=== PATIENT | female | born 1945 | race Caucasian/White ===

== ENCOUNTER → 2019-09-09 11:05 | Outpatient (BNVA) | payer MEDICARE, OTHER, SELFPAY | PROVIDERS: Family Provider Family Medicine; PCP Family Medicine; Visit Provider Family Medicine | DX: R11.0 Nausea (principal); W57.XXXA Bitten or stung by nonvenomous insect and other nonvenomous arthropods, initial encounter | CPT/HCPCS: 86618; 86666; 86757 ==

== ENCOUNTER 2019-11-03 10:12 | Outpatient (CLI) | payer MEDICARE, OTHER, SELFPAY ==
--- NOTE | 2019-11-03 12:51 | ONC FU_ITS ---
Dr. Khoury follow up note Patient: Lisa Das Unit #: [id number]: 1945 Dicatated By: Barry Khoury M.D.Date of Visit:November 03, 2019 Onc Med Follow-up/Prog Note History of Present Illness: Mrs. Lisa Das, is a 74-year-old female with history of left breast mass underwent mammogram on 05/25/2018 which showed an angular mass which is hypoechoic posterior to the left nipple measures 2.6 x 1.6 cm and there is an additional mass at 4:00 position might about 1.5 x 0.8 cm patient underwent left breast biopsy on 06/14/2018 which showed infiltrating ductal carcinoma ER/ND positive HER-2/ama negative Underwent left total mastectomy and left axillary sentinel lymph node biopsy on 07/13/2018 final pathology report showed 2.5 x 1.3 cm infiltrating ductal carcinoma with clear surgical margins, positive lymphovascular space invasion, T2 Left axillary sentinel lymph node biopsy showed benign adipose connective tissue as no lymph node was identified ,Nx Ki-67 23% unfavorable risk, estrogen receptor 76%, progesterone receptor 73% HER-2/ama negative Oncotype DX score checked done 08/03/2018 showed recurrence score 16, e.g. low score e.g. no apparent benefit from chemotherapy.So started on adjuvant Arimidex 1 mg by mouth daily for 5 years on 07/27/2018, Along with calcium/vitamin D supplements Came for follow-up, denies any specific complaints, no fever or chills, no nausea or vomiting, no diarrhea constipation occasionally hot flashes otherwise tolerating Arimidex well along with vitamin D and calcium supplement Medications: Anastrozole 1 Tablet (of 1 mg) Oral daily, Levothyroxine Sodium 1 Tablet (of 75 mcg) Oral daily Allergies: Penicillins Review of Systems: Constitutional - Appetite is good and weight is stable. No fever, chills, or night sweats. Energy level is good. Positive for hot flashes, ENMT - No sinus congestion/drainage. No mouth sores. No sore throat or difficulty swallowing, Hematologic/Lymphatic - No abnormal bruising or bleeding, Respiratory - No shortness of breath. No cough. No pleuritic pain or hemoptysis, Cardiovascular - No angina pain. No palpitations, Gastrointestinal - No nausea or vomiting. No heartburn or acid reflux. No diarrhea or constipation. No blood in the stool or black stools, Genitourinary (F) - No dysuria or hematuria. No urinary frequency. No urgency or incontinence, Musculoskeletal - No joint or bone pain, Neurologic - No headache or dizziness. No numbness/paresthesias or other focal neurologic symptoms, Psychiatric - No anxiety or depression. No insomnia. Vital Signs: Performed on November 03, 2019 10:37 Height - 64.00 in Weight - 228.4 lbs (LOW) BSA - 2.07 sq.m BMI - 39.21 (HIGH) Temperature - 97.8 F (LOW) Pulse - 78 /min Respiration - 20 /min BP - 140/81 mm(hg) O2 Sat - 96 % Pain - 0 Performance Status: 0 - Fully active, able to carry on all predisease activities without restrictions. (ECOG) Physical Examination: Respiratory - Lungs are clear, Cardiovascular - Regular rate and rhythm of heart, Extremities - no visible edema or rash. Lab/Imaging: Test performed on May 11, 2019 12:36 TSH 2.19 uU/mL Cholesterol, Total 214 mg/dL Glucose 107 mg/dL BUN 16 mg/dL HDL Cholesterol 51 mg/dL Creatinine 0.4 mg/dL LDL Cholesterol 137 mg/dL Cr Clearance (Est) 216.3000 mL/min Triglycerides 129 mg/dL Sodium 134 mmol/L Potassium 4.2 mmol/L Chloride 99 mmol/L CO2 21 mmol/L Calcium 10.2 mg/dL Protein, Total 7.4 g/dL Albumin 5.2 g/dL Globulin 2.2 g/dL Bilirubin, Total 0.4 mg/dL Alkaline Phosphatase 80 IU/L AST (SGOT) 22 IU/L ALT (SGPT) 28 IU/L WBC 7.8 10^9/L RBC 4.45 10^12/L HGB 13.4 g/dL HCT 40.1 % MCV 90.1 fl MCH 30.1 pg MCHC 33.4 g/dL RDW 12.6 % Platelet Count 271 10^9/L MPV 12.3 fL Neutrophils (Gran) 4.6 10^9/L Lymphocytes 2.3 10^9/L Monocytes 0.6 10^9/L Eosinophils 0.3 10^9/L Basophils 0.1 10^9/L Manual Lymphocytes 29.1 % Manual Monocytes 7.8 % Manual Eosinophils 3.2 % Manual Basophils 1.3 % Impression: Infiltrating ductal carcinoma status post left simple mastectomy with axillary lymph node biopsy done on 07/13/2018 Final pathology report showed 2.5 x 1.3 cm invasive mass with clear surgical margins T2 Lymphovascular space involvement present. Left axillary [place] lymph node biopsy was done but No lymph node were identified in the specimen, rather benign adipose connective tissue, Nx ER/ND positive, HER-2/ama negative Infiltrating ductal carcinoma per left breast biopsy done on 06/14/2018 grade 2 estrogen 76% positive progesterone 73% positive HER-2/ama negative Ki-67 23% Mammogram/ultrasound left breast measures mass 3 x 2.5 cm occupying the lesion between 12 to 6:00 with nipple eversion cT2,Nx,Mx Immunoperoxidase stains positive for E-cadherin and P120 catenin Oncotype DX score checked on 08/03/2018, was 16 e.g. low score, no apparent benefit from adjuvant chemotherapy, started on Arimidex 1 mg by mouth daily for 5 years on 07/27/2018, along with calcium and vitamin D supplements. Plan: Discussed with patient regarding her concerns and questions, clinically patient has no signs symptom suggestive of recurrence of disease. Tolerating adjuvant therapy with Arimidex well. Continue with same and she will return to clinic in 6 months with CBC CMP and follow-up mammogram Signed By: Barry Khoury M.D. <<Signature on File>>
== END 2019-11-03 10:13 | disposition home or self-care (01) ==
LOC: ONCMED 10:19
PROVIDERS: PCP Family Medicine; Visit Provider Internal Medicine Hematology & Oncology
DX: C50.812 Malignant neoplasm of overlapping sites of left female breast (principal); Z17.0 Estrogen receptor positive status [ER+]; Z79.811 Long term (current) use of aromatase inhibitors; Z90.12 Acquired absence of left breast and nipple
CPT/HCPCS: 99214

== ENCOUNTER → 2020-02-28 08:19 | Outpatient (BNVA) | payer MEDICARE, OTHER, SELFPAY | PROVIDERS: PCP Family Medicine; Visit Provider Family Medicine | DX: Z13.6 Encounter for screening for cardiovascular disorders (principal); E03.9 Hypothyroidism, unspecified | CPT/HCPCS: 80053; 80061; 84443; 85025 ==

== ENCOUNTER 2020-03-16 11:13 | Outpatient (CLI) | payer MEDICARE, OTHER, SELFPAY ==
--- NOTE | 2020-03-16 11:20 | XR_ITS ---
WS: [id number] Right knee, 3 views, 03/16/2020 Clinical Data: right knee pain Comparison: None. Findings: There is lateral joint compartment narrowing with osteophyte formation at the lateral femoral condyle and lateral tibial plateau. The medial joint compartment is normal. There is irregularity of the pos terior patella. No fractures or dislocations are seen. The soft tissues are normal. There is no bone destruction or e rosion. XR/XR knee RT 3V* [id number] Impression: Osteoarthritis of the lateral joint compartment and the posterior patella of th e right knee.
== END 2020-03-16 11:14 | disposition home or self-care (01) ==
LOC: RAD 11:18
PROVIDERS: PCP Family Medicine; Visit Provider Family Medicine
DX: M17.11 Unilateral primary osteoarthritis, right knee (principal)
CPT/HCPCS: 73562

== ENCOUNTER → 2020-04-16 15:22 | Outpatient (BNVA) | payer MEDICARE, OTHER, SELFPAY | PROVIDERS: PCP Family Medicine; Referring Provider Family Medicine; Visit Provider Specialist | DX: M25.561 Pain in right knee (principal); M17.11 Unilateral primary osteoarthritis, right knee | CPT/HCPCS: 73560; 73565 ==

== ENCOUNTER 2020-04-19 14:27 | Outpatient (RCR) | payer MEDICARE, OTHER, SELFPAY | END 2020-05-07 23:59 | disposition home or self-care (01) | LOC: SPT 14:27 | PROVIDERS: PCP Family Medicine; Referring Provider Specialist; Visit Provider Specialist | DX: M17.0 Bilateral primary osteoarthritis of knee (principal) | CPT/HCPCS: 97110; 97161 ==

== ENCOUNTER 2020-05-01 10:20 | Outpatient (CLI) | payer MEDICARE, OTHER, SELFPAY ==
--- NOTE | 2020-05-01 10:28 | MM_ITS ---
WS: [id number] RIGHT DIGITAL MAMMOGRAPHY WITH CAD CLINICAL INFORMATION: HX OF BREAST CA HISTORY OF LEFT MASTECTOMY. COMPARISON: TECHNIQUE: 4 views of the right breast were obtained. FINDINGS: Fatty-replaced right breast. A few punctate calcifications right breast. Lucent centered calcificatio ns. No suspicious focal mass, asymmetry, calcifications, or architectural distortion. No evidence of lori gnancy. MM/[place] [id number] IMPRESSION: BI-RADS: 2-Benign FOLLOW UP: 1 Year Follow-up Recommend return to annual diagnostic mammography.
== END 2020-05-01 10:21 | disposition home or self-care (01) ==
PROVIDERS: PCP Family Medicine; Visit Provider Internal Medicine Hematology & Oncology
DX: Z85.3 Personal history of malignant neoplasm of breast (principal); Z90.11 Acquired absence of right breast and nipple
CPT/HCPCS: 77065; 80053; 85025

== ENCOUNTER 2020-05-08 06:00 | Outpatient (RCR) | payer MEDICARE, OTHER, SELFPAY | END 2020-06-07 23:59 | disposition home or self-care (01) | LOC: SPT 06:00 | PROVIDERS: PCP Family Medicine; Referring Provider Specialist; Visit Provider Specialist | DX: M17.0 Bilateral primary osteoarthritis of knee (principal) | CPT/HCPCS: 97110 ==

== ENCOUNTER 2020-05-14 14:31 | Outpatient (CLI) | payer MEDICARE, OTHER, SELFPAY ==
--- NOTE | 2020-05-14 16:48 | ONC FU_ITS ---
Dr. Khoury follow up note Patient: Lisa Das Unit #: [id number]: [id number] Dicatated By: Barry Khoury M.D.Date of Visit:May 14, 2020 Onc Med Follow-up/Prog Note History of Present Illness: Mrs. Lisa Das, is a 75-year-old female with history of left breast mass underwent mammogram on 05/25/2018 which showed an angular mass which is hypoechoic posterior to the left nipple measures 2.6 x 1.6 cm and there is an additional mass at 4:00 position might about 1.5 x 0.8 cm patient underwent left breast biopsy on 06/14/2018 which showed infiltrating ductal carcinoma ER/MS positive HER-2/ama negative Underwent left total mastectomy and left axillary sentinel lymph node biopsy on 07/13/2018 final pathology report showed 2.5 x 1.3 cm infiltrating ductal carcinoma with clear surgical margins, positive lymphovascular space invasion, T2 Left axillary sentinel lymph node biopsy showed benign adipose connective tissue as no lymph node was identified ,Nx Ki-67 23% unfavorable risk, estrogen receptor 76%, progesterone receptor 73% HER-2/ama negative Oncotype DX score checked done 08/03/2018 showed recurrence score 16, e.g. low score e.g. no apparent benefit from chemotherapy.So started on adjuvant Arimidex 1 mg by mouth daily for 5 years on 07/27/2018, Along with calcium/vitamin D supplements Follow-up mammogram done on May 01, 2020 shows BI-RADS 2 benign Came for follow-up, denies any specific complaints except right knee pain and knee replacement is under consideration, as per patient she was told to lose weight, so far she has lost 10 pounds as she is not eating any sugars and with that her hot flashes related to Arimidex have also resolved. Overall patient is feeling well and tolerating Arimidex/vitamin D/calcium well Medications: Anastrozole 1 Tablet (of 1 mg) Oral daily, Levothyroxine Sodium 1 Tablet (of 75 mcg) Oral daily Allergies: Penicillins Review of Systems: Constitutional - Appetite is good and weight is stable. No fever, chills, or night sweats. Energy level is good. Positive for hot flashes, ENMT - No sinus congestion/drainage. No mouth sores. No sore throat or difficulty swallowing, Hematologic/Lymphatic - No abnormal bruising or bleeding, Respiratory - No shortness of breath. No cough. No pleuritic pain or hemoptysis, Cardiovascular - No angina pain. No palpitations, Gastrointestinal - No nausea or vomiting. No heartburn or acid reflux. No diarrhea or constipation. No blood in the stool or black stools, Genitourinary (F) - No dysuria or hematuria. No urinary frequency. No urgency or incontinence, Musculoskeletal - Positive for knee pain, Neurologic - No headache or dizziness. No numbness/paresthesias or other focal neurologic symptoms, Psychiatric - No anxiety or depression. No insomnia. Vital Signs: Performed on May 14, 2020 16:15 Height - 64.00 in Weight - 234.6 lbs (HIGH) BSA - 2.09 sq.m BMI - 40.27 (HIGH) Temperature - 98.4 F Pulse - 78 /min Respiration - 16 /min BP - 156/68 mm(hg) (HIGH) O2 Sat - 97 % Pain - 0 Performance Status: 0 - Fully active, able to carry on all predisease activities without restrictions. (ECOG) Physical Examination: Respiratory - Lungs are clear to auscultation, Cardiovascular - Regular rate and rhythm of heart, Gastrointestinal - Soft, bowel sounds present, Extremities - No visible edema or rash. Lab/Imaging: Test performed on May 01, 2020 11:46 Glucose 99 mg/dL BUN 20 mg/dL Creatinine 0.5 mg/dL Cr Clearance (Est) 163.89 mL/min Sodium 139 mmol/L Potassium 4.3 mmol/L Chloride 102 mmol/L CO2 28 mmol/L Calcium 9.5 mg/dL Protein, Total 7.6 g/dL Albumin 4.3 g/dL Globulin 3.3 g/dL Bilirubin, Total 0.3 mg/dL Alkaline Phosphatase 77 IU/L AST (SGOT) 20 IU/L ALT (SGPT) 27 IU/L WBC 7.8 10^9/L RBC 4.40 10^12/L HGB 13.6 g/dL HCT 42.3 % MCV 96.1 fl MCH 30.9 pg MCHC 32.2 g/dL RDW 12.7 % Platelet Count 300 10^9/L MPV 11.1 fL Neutrophils (Gran) 4.38 10^9/L Lymphocytes 2.4 10^9/L Monocytes 0.6 10^9/L Eosinophils 0.2 10^9/L Basophils 0.1 10^9/L Manual Lymphocytes 30.1 % Manual Monocytes 8.2 % Manual Eosinophils 2.6 % Manual Basophils 1.5 % Impression: Infiltrating ductal carcinoma status post left simple mastectomy with axillary lymph node biopsy done on 07/13/2018 Final pathology report showed 2.5 x 1.3 cm invasive mass with clear surgical margins T2 Lymphovascular space involvement present. Left axillary [place] lymph node biopsy was done but No lymph node were identified in the specimen, rather benign adipose connective tissue, Nx ER/MS positive, HER-2/ama negative Infiltrating ductal carcinoma per left breast biopsy done on 06/14/2018 grade 2 estrogen 76% positive progesterone 73% positive HER-2/ama negative Ki-67 23% Mammogram/ultrasound left breast measures mass 3 x 2.5 cm occupying the lesion between 12 to 6:00 with nipple eversion cT2,Nx,Mx Immunoperoxidase stains positive for E-cadherin and P120 catenin Oncotype DX score checked on 08/03/2018, was 16 e.g. low score, no apparent benefit from adjuvant chemotherapy, started on Arimidex 1 mg by mouth daily for 5 years on 07/27/2018, along with calcium and vitamin D supplements. Plan: Discussed with patient regarding her labs white blood count 7.8 hemoglobin 13.6 crit 42.3 platelets 300,000 CMP within normal limits and follow-up mammogram done on May 01, 2020 shows BI-RADS 2, benign findings Clinically, patient doing well with no new signs symptom suggestive of recurrence of disease, tolerating Arimidex/vitamin D/calcium well. Her hot flashes, as per patient now resolved since she stopped consuming sugar and also have lost about 10 pounds and goal is to lose 10 more before right knee replacement is considered probably in June of July 2020. Patient will return to clinic in 6 months for follow-up in the meantime we will continue daily Arimidex/vitamin D/calcium. Signed By: Barry Khoury M.D. <<Signature on File>>
== END 2020-05-14 14:32 | disposition home or self-care (01) ==
LOC: ONCMED 14:35
PROVIDERS: PCP Family Medicine; Visit Provider Internal Medicine Hematology & Oncology
DX: C50.812 Malignant neoplasm of overlapping sites of left female breast (principal); Z17.0 Estrogen receptor positive status [ER+]; E55.9 Vitamin D deficiency, unspecified; E58 Dietary calcium deficiency; Z79.811 Long term (current) use of aromatase inhibitors
CPT/HCPCS: 99214

== ENCOUNTER → 2020-08-06 | Day surgery (SDC) | payer MEDICARE, OTHER, SELFPAY | PROVIDERS: PCP Family Medicine; Visit Provider Specialist | DX: Z01.818 Encounter for other preprocedural examination (principal) | CPT/HCPCS: 93005 ==

== ENCOUNTER → 2020-08-16 12:46 | Outpatient (BNVA) | payer MEDICARE, OTHER, SELFPAY | PROVIDERS: PCP Family Medicine; Visit Provider Specialist | DX: Z01.812 Encounter for preprocedural laboratory examination (principal); M17.11 Unilateral primary osteoarthritis, right knee | CPT/HCPCS: 87635 ==

== ENCOUNTER 2020-08-21 11:46 | Observation (INO) | payer MEDICARE, OTHER, SELFPAY ==
[2020-08-06 09:52] VITALS: BMI 38.6
--- NOTE | 2020-08-06 10:06 | ECG_ITS ---
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 Measurements Intervals [place] Rate: 55 P: 56 NV: 168 QRS: -8 QRSD: 76 T: 67 QT: 434 QTc: 415 Interpretive Statements SINUS BRADYCARDIA Compared to ECG 07/12/2018 09:49:37 Sinus rhythm no longer present T-wave abnormality no longer present Electronically Signed On 08-06-2020 19:00:39 [employer] by Max Shannon M.D. [id number]
--- NOTE | 2020-08-06 10:21 | ANES.PREANE2 ---
Pre-Anesthetic Assessment Pre-Anesthetic Assessment: Height/Weight: Height 1.63 m Weight 102.058 kg Preop Diagnosis: Knee pain Proposed Procedure: Operation Date: 08/21/20 07:00 Proposed Procedures p right Total Knee Arthroplasty 49938 m17.0(Right) - Ewelina Moon MD Familial anesthetic complications: None Social: Social History: No alcohol and No tobacco Exam: Pre-Anes Outpt Exam: alert, oriented x 3, clear to auscultation bilaterally and regular rate & rhythm Airway: Cervical ROM: WNL MP: 2 Dentition: Caps Metabolic: Metabolic: Morbid obesity and Thyroid Musc/skel: Musc/skel: OA/DJD Comments: shoulder pain (B/L) Anesthetic Plan: ASA status: 2 Anesthesia: Regional (specify below) (adductor ) Other: patient considering doing spinal, will decide morning of surgery Risk of > 500 ml blood loss (7ml/kg in children): Yes, adequate IV access and fluids planned PFSH Anesthesia PFSH: Medical History Breast cancer Hypothyroidism Surgical History H/O: hysterectomy S/P cholecystectomy S/P mastectomy On left Family History Other CAD (coronary artery disease) Cancer Social History Smoking and tobacco status: never smoked Alcohol intake: never Lives independently: No Household members: spouse Marital status: Current gender identity: Female Female Reproductive History: Para: 1 Spontaneous abortions: No Data Anesthesia Cardiac Studies: No Data to Display
--- NOTE | 2020-08-06 14:04 | SUR.PREOP ---
08/06/20 10;00 no orders in computer. No labs drawn. Ekg obtained off of anesthesia protocol.
[2020-08-21] VITALS (19 sets, daily range): BP systolic 103–170; BP diastolic 50–76; PULSE 47–78; RESP 16–20; TEMP 35.6–37.1; O2SAT 93–100
--- NOTE | 2020-08-21 08:19 | P.ANESUD_ITS ---
Pre-Anesthetic Update Pre-Anesthetic Assessment: Date of Surgery/Procedure: 08/21/20 Preop Sherin gnosis: Osteoarthritis right knee Proposed Procedure: Operation Date: 08/21/20 09:25 Proposed Procedures p right Total Knee Arthroplasty 53699 m17.0(Right) - Ewelina Moon MD Any changes to Pre-Anesthetic Assessment?: No Vitals: Temperature 96.0 F L 08/21/20 07:56 Pulse Rate 58 L 08/21/20 07:56 Pulse Rhythm 08/21/20 07:57 Pulse Strength 3+ Normal 08/21/20 07:57 Respiratory Rate 18 08/21/20 07:56 Blood Pressure 167/66 08/21/20 07:56 Blood Pressure Dolores n 99 08/21/20 07:56 Pulse Oximetry 96 08/21/20 07:56 Oxygen Delivery Me thod 08/21/20 07:57 Exam: Pre-Anes Outpt Exam: alert, oriented x 3, clear to auscultation bilaterally and regular rate & rhythm Other Pertinent Information: Other Pertinent Information: SAB/adductor Cardiac Studies: No Data to Display
[2020-08-21] MEDS: sodium chloride 0.9% 1,000 ML 30 ML IV (08:37)
[2020-08-21] MEDS: CELEcoxib 200 mg Capsule 400 MG PO (08:43)
[2020-08-21] MEDS: midazolam 1 mg/mL INJ 2 mL 2 MG IVP (08:54)
[2020-08-21 08:55] LABS: Basophils # 0.1 10^3/uL (0.0-0.1); Basophils % 1.6 %; Eosinophils # 0.2 10^3/uL (0.0-0.8); Eosinophils % 2.8 %; Hemoglobin 14.6 g/dL (11.5-15.3); Lymphocytes # 2.3 10^3/uL (0.8-4.8); Lymphocytes % 28.7 %; Mean Corpuscular HGB Conc 33.2 g/dL (30.0-36.0); Mean Corpuscular Hemoglobin 31.2 pg (28.0-34.0); Mean Platelet Volume 11.1 fL (7.4-10.4); Monocytes # 0.6 10^3/uL (0.2-0.9); Monocytes % 7.5 %; Neutrophils % 59.1 %; Nucleated Red Blood Cells % 0 %; Platelet Count 289 10^3/cmm (130-400); Red Blood Count 4.68 10^6/uL (4.1-5.3); Red Cell Distribution Width 12.7 % (12.1-15.1)
[2020-08-21 09:15] LABS: Alanine Aminotransferase 21 U/L (0-33); Albumin Level 4.4 g/dL (3.5-5.2); Alkaline Phosphatase 73 IU/L (35-105); Aspartate Amino Transferase 17 U/L (0-32); Blood Urea Nitrogen 17 mg/dL (8-23); Calcium 9.7 mg/dL (8.5-10.5); Carbon Dioxide 28 mmol/L (22-29); Chloride 101 mmol/L (98-107); Globulin 3.5 g/dL (1.3-4.6); Glucose 99 mg/dL (65-115); Osmolality Calculated 288 mOsm/kg (285-295); Sodium 138 mmol/L (136-145); Total Bilirubin 0.3 mg/dL (0.15-1.2); Total Protein 7.9 g/dL (6.6-8.7)
[2020-08-21 09:16] LABS: Add Urine Microscopic? YES; Bilirubin Urine Neg (Negative); Blood Urine Neg (Negative); Glucose Urine UA Norm (Normal); Ketones Urine Negative (Negative); Leukocyte Esterase Urine 2+ (Negative); Nitrate Urine Negative (Negative); Protein Urine Neg (Negative); Urine Appearance SL Hazy (CLEAR); Urine Color Yellow (Yellow); Urobilinogen Urine Norm (Negative); pH Urine 5 (5-7)
[2020-08-21 09:17] LABS: RBC Urine RARE /hpf (0-2); WBC Urine 0-4 /hpf (0-5)
[2020-08-21 09:19] LABS: Add Urine Culture? No; Bacteria Urine 1+ /hpf; Mucus Urine TRACE /hpf
--- NOTE | 2020-08-21 09:34 | W.PM.OPSUD ---
Surgery/Procedure H&P Update DATE OF PROCEDURE: August 21, 2020 DATE H&P PERFORMED: 07/30/20 H&P UPDATE INFORMATION: I have reviewed H&P completed within last 30 days, I have examined patient prior to procedure, No changes to prior documentation and H&P is in [facility] EMR on date indicated PREOP DIAGNOSIS: Osteoarthritis right knee PLANNED PROCEDURE: Operation Date: 08/21/20 09:25 Proposed Procedures p right Total Knee Arthroplasty 00309 m17.0(Right) - Ewelina Moon MD Related Problem List Diagnoses (1) Osteoarthritis of right knee: Qualifiers: Osteoarthritis type: primary Qualified Code(s): M17.11 - Unilateral primary osteoarthritis, right knee
[2020-08-21] MEDS: vancomycin 1,000 MG in sodium chloride 0.9% 250 ML 250 MG IV (09:38)
--- NOTE | 2020-08-21 10:03 | ANES.PROC ---
Anesthesia Procedures Procedure/Date: 08/21/20 Nerve Block ^: Nerve Block 1: Main Anesthesia: spinal anesthesia block Time Out Performed: Yes Consent: requested by attending/covering physician, from patient, risks and benefits reviewed and patient agrees to proceed Nerve block location: adductor canal (right) Anesthesia monitors applied: pulse oximetry, EKG, BP cuff and oxygen Nerve block position: supine Anesthetic Used: ropivicaine 0.5% Amount of anesthesia used (mL): 20 Ultrasound used to: recognize landmarks Nerve Stimulator Used?: No Interscalene/Femoral BLK: 4 stimuplex 21 g needle used for position and inplane approach, visualize local anesthetic spread and no vascular puncture identified Injection: neg aspiration of heme Patient Tolerated Procedure: well Complications: none
[2020-08-21] MEDS: vancomycin 1,000 MG SDV 3000 MG IRRIGATION (10:39)
--- NOTE | 2020-08-21 12:44 | XR_ITS ---
WS: [id number] XR knee RT 3V* [id number] REASON FOR EXAM: Status post right total knee arthroplasty FINDINGS: Total right knee arthroplasty. Surgical appliance and bony structure in proper position and alignment. No focal bony abnormality. Postsurgical soft tissue changes. XR/XR knee RT 3V* [id number] IMPRESSION: Total right knee arthroplasty with no significant abnormality.
--- NOTE | 2020-08-21 12:45 | PM.OP ---
Operative Report Date of procedure: August 21, 2020 Pre-op Diagnosis: Osteoarthritis right knee with valgus deformity Post-op diagnosis: same Post-op Findings: Significant degenerative osteoarthritic change Procedure Done: Right total knee arthroplasty Implants: The [place] total knee system with a size 3 triathlon beaded posterior stabilized femur right, a triathlon titanium tibial component size 2 beaded, a triathlon X3 posterior stabilized tibial bearing insert size 2 X 11 mm and a beaded triathlon titanium asymmetric patella size 29 x 9 mm Specimens removed/disposition: Bone, disposed of Pathology: none sent Surgeon: Ewelina Moon Studio Camera Operator: [facility] operating room technicians Anesthesia: MAC (With spinal anesthetic) Estimated blood loss (mL): 20 Tourniquet time (min): 116 Tourniquet time: At 300 mmHg IV fluids (mL): 1,100 Urine output (mL): 300 Complications: None Findings: Severe degenerative osteoarthritic change with valgus deformity and no flexion contracture Condition: stable Disposition: PACU (Then to floor for postoperative rehabilitation and monitoring under observation status) Brief History: This 75-year-old woman presented to the office with severe right knee pain which was incapacitating. She was unable to ambulate or perform reasonable activities of daily living. None of these activities were able to be accomplished comfortably. She was unresponsive to conservative measures and wished to proceed with right total knee arthroplasty risks and complications were discussed. Consents were signed preoperatively, and questions were answered. The patient wished to proceed. Procedure: The patient was brought to the operating theater, and after undergoing adequate spinal anesthesia supplemented with regional block and sedation, ASA 3, the right lower extremity was prepped with Dura-Prep and draped in usual fashion following placement of a tourniquet high on the leg. The leg was then draped free. Following prepping and draping, the leg was exsanguinated, and the tourniquet was elevated to 300 mmHg for a total tourniquet time of 116 minutes. Prior to elevation of the tourniquet, but following exposure of the site of surgery, a surgical pause was performed. At the time of the surgical pause, we confirmed the site and side of surgery. Additionally, we confirmed the appropriate and timely administration of preoperative antibiotics, vancomycin 1 g. and Transexemic acid 1 g. The availability of equipment was confirmed, and the patient's identity was verbalized as well. Following the surgical pause, an incision was made centering over the patella continuing proximally and distally as necessary to allow access to the knee joint. Dissection continued through skin and soft tissues using a scalpel. Hemostasis was obtained using electrocautery. The skin incision was followed by a median parapatellar arthrotomy. The leg was extended and the patella was everted. Following this, the leg was returned to flexed position. The distal femur was exposed and a drill hole was made in this for placement of the distal femoral jig. The distal femoral jig was set at 5? of valgus. The distal femoral cutting block was then placed in appropriate position, and an alexandra wing was used to confirm an appropriate amount of distal femur would be resected. The distal femoral resection was accomplished with 8 mm of bone being resected distally. After the distal femoral resection had been accomplished, the femur was measured and it measured a size 3. Medial lateral dimension also measured a size 3. A size 3 femoral cutting block was placed in position, and we were then able to accomplish the anterior, posterior and chamfer cuts. This jig was then removed and the notch guide was placed in position. With the notch guide in appropriate position, the notch was excised including resection of the anterior and posterior cruciate ligaments. This notch was to allow for the posterior stabilized femoral component. At this point, the femur was prepared and attention was directed to the proximal tibia. The posterior knee retractor was placed along with medial and lateral retractors. Further resection of the menisci was accomplished as we had better visualization. A complete meniscectomy was performed both medially and laterally with care being taken to protect the popliteus. Retractors were then placed so that the proximal tibia was well visualized. A drill hole was then made in the tibia for placement of the intramedullary guide. This guide was placed so that approximately 2 mm of bone would be resected from the deficient lateral tibial plateau. The intramedullary guide was utilized supplemented with an extramedullary guide to assure appropriate alignment for the proximal tibial resection. The proximal tibial jig was then evaluated, pinned in position, and the proximal tibial resection was accomplished without difficulty. The jig was removed, and the proximal tibia was measured. It measured a size 2. We then attempted a trial reduction with a size 2 by 11 mm insert. Osteophytes were also removed from the tibia. The femoral component was placed in position for the trial reduction, and the knee was placed through range of motion. With this, there was excellent stability with excellent varus-valgus alignment with appropriate patellar tracking. Extension was noted to be full as well. This was felt to be the appropriate size insert. There was full extension and flexion without lift off and the rotation of the tibia was marked. Alignment was checked from the hip to the ankle, and this was noted to be appropriate as well. Attention was then directed to the patella. The patella was measured with a caliper. We resected sufficient patella to leave approximately 14 mm of patella remaining. Measurements of the patella then indicated that a size asymmetric 29 mm x 9 mm was the appropriate patellar size. We then placed the jig to drill for the 3 pegs of the press-fit patella, and these drill holes were made without incident. A trial patella was then placed, and the knee was placed through range of motion. The patella was noted to track nicely without evidence of subluxation. The femur was prepared for a press-fit femur by drilling 2 holes for the femoral pegs. All trial components were subsequently removed. The tibial tray was then pinned into position, and we broached the tibia for the stem of the tibial component. Subsequently, 4 drill holes were made for placement of the press-fit tibia. This was accomplished without difficulty. Care was taken to assure appropriate rotation of the tibia as well as appropriate position on the proximal tibia. The tibial tray was completely seated on the proximal tibia. Following broaching, the tibial guide was removed, and all surfaces were copiously irrigated. The surfaces were then dried and a bone plug was placed into the distal femur. Exparel was also injected at this point. The Tritanium tibia was impacted into position. The beaded femur was then impacted into position in a cementless fashion. The tibial insert was placed. The patella was pressed into position with a patellar clamp. The knee was irrigated with 20 mL of Betadine and 500 mL of normal saline, and this was allowed to remain in the knee for 3-4 minutes. The knee was then copiously irrigated and suctioned dry. Attention was then directed to closure. Closure was accomplished with 0 Vicryl in the fascial tissues. Following this, a 2-0 Monocryl was used in the subcutaneous tissues, and the skin was closed with skin shai. A sterile dressing was then placed consisting of Dermabond Prineo, telfa, 4x4's, ABD, sterile soft roll, and an Cody wrap. The patient was returned the Recovery Room in a satisfactory condition. X-rays were obtained there. The patient will be discharged to the floor for postoperative rehabilitation and pain management. Associated Problem List Diagnoses (1) Osteoarthritis of right knee: Qualifiers: Osteoarthritis type: primary Qualified Code(s): M17.11 - Unilateral primary osteoarthritis, right knee
--- NOTE | 2020-08-21 14:09 | ANE.PACU2 ---
Inpatient post-anesthesia follow up: Airway intact: Yes Vital signs: Temperature 97.6 F Pulse Rate 50 Respiratory Rate 18 Blood Pressure 134/66 Pulse Oximetry 99 Oxygen Delivery Me thod Room Air Oxygen Flow Rate Fraction of Inspir ed Oxygen Hydration adequate: Yes Nausea and vomiting: No Pain level: 1 Mental status: Baseline
[2020-08-21] MEDS: oxyCODONE 5 mg IR Tab/Cap PO (15:07)
[2020-08-21] MEDS: lactated ringers 1,000 ML 100 ML IV (15:09)
[2020-08-21] MEDS: TRAMadol 50 mg Tablet PO ×2 (17:39→20:51)
[2020-08-21] MEDS: mupirocin oint 22 gm 1 APPLIC NASAL (17:40)
[2020-08-21] MEDS: calcium carbonate 500 mg Chew Tablet 1000 MG PO (17:40)
[2020-08-21] MEDS: calcium carb-vit d 600mg/400unit 1 Tablet 1 EACH PO (17:40)
[2020-08-21] MEDS: chlorhexidine gluconate 0.12% Btl 473 mL 30 ML MUCOUS MEM ×2 (17:40→20:53)
[2020-08-21] MEDS: sennosides-docusate Tablet 2 TAB PO (17:40)
[2020-08-21] MEDS: iron polysaccharide complex 150 mg Capsule PO (17:40)
--- NOTE | 2020-08-21 17:54 | PC.NURSE ---
Patient has received 5mg oxycodone, 1000mg offirmev and 50mg tramadol, pain still rated at 10/10. Patient asked this nurse if I had any IV morphine This nurse told her no, but I would notify Dr. Moon about her pain level. Dr. Moon aware, telephone orders received to increase patients oxycodone to 10mg Q4H PRN, first dose can be given now. patient up in chair at this time, call light within reach.
[2020-08-21] MEDS: oxyCODONE 5 mg IR Tab/Cap 10 MG PO ×2 (18:01→22:27)
[2020-08-21] MEDS: CELEcoxib 200 mg Capsule PO (19:54)
[2020-08-22] VITALS (8 sets, daily range): BP systolic 133–138; BP diastolic 61–75; PULSE 64–86; RESP 18–20; TEMP 36.4–37.1; O2SAT 91–96
[2020-08-22] MEDS: lactated ringers 1,000 ML 100 ML IV (00:24)
[2020-08-22] MEDS: ondansetron 2 mg/ML SDV 2 mL 4 MG IVP (00:28)
[2020-08-22 03:00] LABS: Basophils # 0.1 10^3/uL (0.0-0.1); Basophils % 0.3 %; Eosinophils % 0.1 %; Hematocrit 40.6 % (37.0-47.0); Lymphocytes # 0.8 10^3/uL (0.8-4.8); Lymphocytes % 5.9 %; Mean Corpuscular Hemoglobin 31.4 pg (28.0-34.0); Mean Corpuscular Volume 98.1 fL (81-99); Mean Platelet Volume 11.2 fL (7.4-10.4); Monocytes # 0.8 10^3/uL (0.2-0.9); Monocytes % 5.7 %; Neutrophils # 12.57 10^3/uL (1.8-7.7); Neutrophils % 87.7 %; Nucleated Red Blood Cells % 0 %; Platelet Count 252 10^3/cmm (130-400); Red Blood Count 4.14 10^6/uL (4.1-5.3); Red Cell Distribution Width 12.7 % (12.1-15.1); White Blood Count 14.4 10^3/uL (4.0-10.0)
[2020-08-22 03:17] LABS: Blood Urea Nitrogen 13 mg/dL (8-23); Calcium 8.8 mg/dL (8.5-10.5); Carbon Dioxide 26 mmol/L (22-29); Chloride 101 mmol/L (98-107); Glucose 140 mg/dL (65-115); Osmolality Calculated 280 mOsm/kg (285-295); Sodium 134 mmol/L (136-145)
[2020-08-22] MEDS: oxyCODONE 5 mg IR Tab/Cap 10 MG PO ×2 (06:43→10:59)
[2020-08-22] MEDS: calcium carb-vit d 600mg/400unit 1 Tablet 1 EACH PO (08:54)
[2020-08-22] MEDS: anastrozole 1 mg Tablet PO (08:54)
[2020-08-22] MEDS: aspirin 325 mg EC Tablet PO (08:54)
[2020-08-22] MEDS: sennosides-docusate Tablet 2 TAB PO (08:54)
[2020-08-22] MEDS: chlorhexidine gluconate 0.12% Btl 473 mL 30 ML MUCOUS MEM (08:55)
[2020-08-22] MEDS: cholecalciferol (vitamin D3) 1,000 unit Tablet 1000 UNIT PO (08:55)
[2020-08-22] MEDS: levothyroxine 75 mcg Tablet PO (08:55)
[2020-08-22] MEDS: iron polysaccharide complex 150 mg Capsule PO (08:55)
[2020-08-22] MEDS: mupirocin oint 22 gm 1 APPLIC NASAL (08:55)
[2020-08-22] MEDS: CELEcoxib 200 mg Capsule PO (08:55)
[2020-08-22] MEDS: calcium carbonate 500 mg Chew Tablet 1000 MG PO (08:55)
[2020-08-22] MEDS: multivitamin therapeutic Tablet 1 TAB PO (08:55)
--- NOTE | 2020-08-22 10:13 | PC.CHAP ---
Pastoral Care Encounter/Spiritual Assessment Type of Contact [] Declined redevelopment manager visit [] Patient/Family/Request visit [] Outpatient visit [] Follow-up visit [] Physician referral [] Code/Alert [x] Routine visit [] Staff referral [] Actively dying [] Patient sleeping [] Family support [] [] Out of room [] Palliative care [] [] Receiving care in room [] Pre-surgical visit [] Trauma [] Long length of stay [] ICU visit [] Other: Relational/Emotional Strength [x] Patient feels connected with others/family/visitors/staff [] Distress [] Loneliness/isolation [] Abandonment Spirituality of Patient [] Person of Morena [] Attends Restorationism of their [place]na [x] Believes in Prayer [] Reads Bible or Confucianism materials [] There are Spiritual issues to be addressed Cloth Winder Interventions [x] Prayer [x] Active listening [x] Non-anxious presence [x] Spiritual/emotional support [] Crisis/trauma care [] Spiritual counseling [] Bereavement support [] Provided bereavement packet [] Provided Bible/devotional materials [] Provided toy/stuffed animal, coloring book to patient or family member [] Provided Communion [] Anointing/[place] [] Salvation [x] Completed spiritual assessment [] Other: Impact on Illness or Injury [] Angry [] Fearful [] Anxious [] Often cries [] Exhaustion [] Unable to work [] Unable to attend zoroastrian [] Unable to walk/stand [] Unable to read [] Unable to drive [] Unable to eat/drink [] Unable to sleep [] Unable to be with family [] Patient intubated [] Other: Summary Pt had need replacement yesterday. Hoping to be released today Time spent with patient
[2020-08-22] MEDS: vancomycin 1,000 MG in sodium chloride 0.9% 250 ML 250 MG IV (11:10)
--- NOTE | 2020-08-22 13:38 | P.DS_ITS ---
Discharge Providers Date of Admission: 08/21/20 11:46 Date of Discharge: August 22, 2020 Attending Provider at Admission: Ewelina Moon MD Attending Provider at Discharge: Ewelina Moon MD Primary Care Provider: Fannie Soler DO Diagnoses at Discharge Discharge Diagnosis (1) Osteoarthritis of right knee: Status: Acute Permanent problem details: The [place] total knee system with a size 3 triathlon beaded posterior stabilized femur right, a triathlon titanium tibial component size 2 beaded, a triathlon X3 posterior stabilized tibial bearing insert size 2 X 11 mm and a beaded triathlon titanium asymmetric patella size 29 x 9 mm Qualifiers: Osteoarthritis type: primary Qualified Code(s): M17.11 - Unilateral primary osteoarthritis, right knee (2) History of total right knee replacement: Status: Acute Reason for Visit Reason for Visit: right total knee arthroplasty Hospital Course Hospital Course This 75-year-old woman underwent right total knee arthroplasty uneventfully yesterday. She was brought to the hospital for same-day surgery. Post operatively, the patient was admitted to the floor under observation status for postoperative pain management and institution of physical therapy. She was also there for monitoring of medical conditions. The patient did well overnight. She did require an increase in her pain medication. Today, postop day 1, she is doing much better. She feels she is ready for discharge to home. Her dressing is removed. Her wound is benign. There is no evidence of infection. There is minimal to no swelling. There is no ecchymosis. She is neurologically intact. Therefore, the patient will be discharged to home. She wishes to have outpatient physical therapy rather than in home, and this will be arranged for her. Physical Exam Const: COMMON NORMALS: no acute distress, average body habitus, patient oriented x3 and alert GENERAL APPEARANCE: cooperative and comfortable ORIENTATION/CONSCIOUSNESS: Yes awake HENMT: COMMON NORMALS: normocephalic and atraumatic HEAD & SCALP: normocephalic and atraumatic Eye: GENERAL EYE: appearance normal, both eyes and all related structures Chest: COMMONS NORMALS: normal inspection of the chest Resp: COMMON NORMALS: normal respiratory effort EFFORT & INSPECTION: Yes able to speak in complete sentences and Yes symmetric chest movement Extremity: RIGHT LOWER EXTREMITY: Yes knee joint (Wound is benign. Minimal to no ecchymosis.) Right knee: Yes inspection (Calf is soft with no swelling.), Yes palpation (Minimal discomfort.), Yes ROM (Limited as expected secondary to surgery.) and Yes neurovascular exam (Intact with no evidence of DVT.) Neuro: COMMON NORMALS: patient oriented x3 SENSORIUM/ORIENTATION: Yes alert Psych: COMMON NORMALS: mental status grossly normal APPEARANCE: Yes grossly normal ATTITUDE: Yes calm and Yes engaged ATTENTION/CONCENTRATION: Yes attention grossly intact Skin: COMMON NORMALS: no rashes or lesions noted GENERAL SKIN EXAM: no rashes or lesions noted Urinary Catheter Management^: F: Cath Placed During This Visit: yes, but has since been removed by the nurse Reason for Continuing Indwelling Catheter: Decision to DC Catheter Urinary Catheter Date of Insertion: 08/21/20 Urinary Catheter Time of Insertion: 10:02 Date Urinary Catheter Removed: 08/22/20 Time Urinary Catheter Discontinued: 05:45 Discharge Data Data Completed and Pending: Completed Studies During Hospitalization Category Date Time Status XR knee RT 3V* [id number] Urgent Exams 08/21/20 12:44 Completed Pending at discharge Category Date Time Status Complete Blood Co unt w/Auto AM LABS Lab 08/23/20 04:00 Ordered Complete Blood Co unt w/Auto AM LABS Lab 08/24/20 04:00 Ordered Labs from last 24 hours 08/22/20 08/22/20 02:33 02:33 WBC 14.4 H RBC 4.14 Hgb 13.0 Hct 40.6 MCV 98.1 MCH 31.4 MCHC 32.0 RDW 12.7 Plt Count 252 MPV 11.2 H Neut % (Auto) 87.7 Lymph % (Auto) 5.9 Eddy % (Auto) 5.7 Eos % (Auto) 0.1 Baso % (Auto) 0.3 Neut # (Auto) 12.57 H Lymph # (Auto) 0.8 Eddy # (Auto) 0.8 Eos # (Auto) 0.0 Baso # (Auto) 0.1 Nucleated RBC % (a uto) 0 Nucleated RBCs # 0.0 Sodium 134 L Potassium 4.0 Chloride 101 Carbon Dioxide 26 Anion Gap 11.0 BUN 13 Creatinine 0.4 L GFR Calculation Not Reportable Glucose 140 H Calculated Osmolal ity 280 L Calcium 8.8 Vitals: Last Vital Signs Temp 98.7 F 03/17/21 11:53 Pulse 86 08/22/20 11:53 Resp 19 H 08/22/20 11:53 BP 134/68 08/22/20 11:53 Pulse Ox 96 08/22/20 11:53 Discharge Plan Discharge Patient Disposition: Home Condition: Stable Prescriptions: New celecoxib 200 mg Capsule 200 mg PO Q12H Qty: 60 RF: 0 acetaminophen 500 mg Tablet 1,000 mg PO Q8H Qty: 0 RF: 0 aspirin 325 mg Tablet,Delayed Release (Dr/Ec) 325 mg PO DAILY Qty: 30 RF: 0 oxycodone 5 mg Tablet 10 mg PO Q4H PRN (Reason: Moderate Pain) Qty: 30 RF: 0 Continued anastrozole 1 mg tablet 1 mg PO QDAY RF: 0 levothyroxine 75 mcg tablet 75 mcg PO DAILY Qty: 90 RF: 1 multivitamin Tablet 1 tab PO DAILY RF: 0 Discharge Orders: Discharge Order (Routine); Ordered 08/22/20 Ordered By: Ewelina Moon Other Ambulatory Orders: Physical Therapy Eval and Treat Outpatient (Order) Timeframe: 1 Day Facility: [facility] - Location: Physical Therapy Ordered By: Ewelina Moon Referrals: [facility] [Other] - 08/23/20 2:30 pm (You will be seeing Paras the physical tehrapist at 2:30 PM Tomorrow 08/23/2020. ) Ewelina Moon MD [Physician] - 09/03/20 10:15 am Discharge Diet: Advance as tolerated and Usual diet Discharge Activity: Increase activity as tolerated, Limit activity as instructed, Use walker/crutches as instructed and As per PT/OT instructions Patient Instructions: Acetaminophen (By mouth), Aspirin (By mouth), Oxycodone, Rapid Release (By mouth), Celecoxib (By mouth), Total Knee Replacement (DC) Activity Restrictions/Additional Instructions: Ice and elevation to right lower extremity. Range of motion, gait training, and strengthening per physical therapy. Discharge Attestations Time Spent in Discharge Care*: greater than 30 min Specific Discharge Activities: educating patient, educating and/or supporting family/caregiver, documenting/other paperwork and evaluating patient/reviewing data Quality Metrics Clinical Quality Measures During this hospital stay, did patient experience: None Coding Level of Care Code Acute Chg FW DC note Diagnoses Osteoarthritis of right knee M17.11 Osteoarthritis type: primary History of total right knee replacement Z96.651
== END 2020-08-22 14:29 | disposition home or self-care (01) ==
LOC: MEDSURG 11:47
PROVIDERS: Admitting Provider Specialist; PCP Family Medicine; Visit Provider Specialist
PROC: (CPT 27447; principal; 2020-08-21 09:25)
DX: M17.11 Unilateral primary osteoarthritis, right knee (principal); E66.01 Morbid (severe) obesity due to excess calories; Z68.38 Body mass index [BMI] 38.0-38.9, adult; E03.9 Hypothyroidism, unspecified; Z85.3 Personal history of malignant neoplasm of breast
CPT/HCPCS: 27447; 36415; 51702; 64447; 73562; 76942; 80048; 80053; 81001; 85025; 96365; 96374; 97110; 97116; 97161; 97165; 97530; C1776; C9290; G0378; J0131; J2250; J2405; J2704; J2795; J3370; J3490; J7030; J7050; J8999

== ENCOUNTER 2020-08-23 14:48 | Outpatient (RCR) | payer MEDICARE, OTHER, SELFPAY | END 2020-09-05 23:59 | disposition home or self-care (01) | LOC: SPT 14:48 | PROVIDERS: PCP Family Medicine; Referring Provider Specialist; Visit Provider Specialist | DX: Z96.659 Presence of unspecified artificial knee joint (principal) | CPT/HCPCS: 97110; 97161 ==

== ENCOUNTER → 2020-09-03 10:29 | Outpatient (BNVA) | payer MEDICARE, OTHER, SELFPAY | PROVIDERS: PCP Family Medicine; Visit Provider Specialist | DX: Z96.651 Presence of right artificial knee joint (principal) | CPT/HCPCS: 73560; 73565 ==

== ENCOUNTER 2020-09-06 06:00 | Outpatient (RCR) | payer MEDICARE, OTHER, SELFPAY | END 2020-10-05 23:59 | disposition home or self-care (01) | LOC: SPT 06:00 | PROVIDERS: PCP Family Medicine; Referring Provider Specialist; Visit Provider Specialist | DX: Z47.1 Aftercare following joint replacement surgery (principal); Z96.659 Presence of unspecified artificial knee joint | CPT/HCPCS: 97110 ==

== ENCOUNTER → 2020-09-21 13:49 | Outpatient (BNVA) | payer MEDICARE, OTHER, SELFPAY | PROVIDERS: PCP Family Medicine; Visit Provider Family Medicine | DX: E03.9 Hypothyroidism, unspecified (principal); Z68.39 Body mass index [BMI] 39.0-39.9, adult | CPT/HCPCS: 84443 ==

== ENCOUNTER → 2020-10-01 12:57 | Outpatient (BNVA) | payer MEDICARE, OTHER, SELFPAY | PROVIDERS: PCP Family Medicine; Visit Provider Specialist | DX: Z96.651 Presence of right artificial knee joint (principal) | CPT/HCPCS: 73560; 73565 ==

== ENCOUNTER 2020-10-06 06:00 | Outpatient (RCR) | payer MEDICARE, OTHER, SELFPAY | END 2020-11-05 23:59 | disposition home or self-care (01) | LOC: SPT 06:00 | PROVIDERS: PCP Family Medicine; Referring Provider Specialist; Visit Provider Specialist | DX: Z47.1 Aftercare following joint replacement surgery (principal); Z96.651 Presence of right artificial knee joint | CPT/HCPCS: 97110; 97116 ==

== ENCOUNTER 2020-11-06 06:00 | Outpatient (RCR) | payer MEDICARE, OTHER, SELFPAY | END 2020-12-05 23:59 | disposition home or self-care (01) | LOC: SPT 06:00 | PROVIDERS: PCP Family Medicine; Referring Provider Specialist; Visit Provider Specialist | DX: Z47.1 Aftercare following joint replacement surgery (principal); Z96.651 Presence of right artificial knee joint | CPT/HCPCS: 97110; 97116 ==

== ENCOUNTER 2020-11-12 13:28 | Outpatient (CLI) | payer MEDICARE, OTHER, SELFPAY ==
--- NOTE | 2020-11-12 17:30 | ONC FU_ITS ---
Dr. Khoury follow up note Patient: Lisa Das Unit #: [id number]: [id number] Dicatated By: Barry Khoury M.D.Date of Visit:Nov 12, 2020 Onc Med Follow-up/Prog Note History of Present Illness: Mrs. Lisa Das, is a 75-year-old female with history of left breast mass underwent mammogram on 05/25/2018 which showed an angular mass which is hypoechoic posterior to the left nipple measures 2.6 x 1.6 cm and there is an additional mass at 4:00 position might about 1.5 x 0.8 cm patient underwent left breast biopsy on 06/14/2018 which showed infiltrating ductal carcinoma ER/HI positive HER-2/ama negative Underwent left total mastectomy and left axillary sentinel lymph node biopsy on 07/13/2018 final pathology report showed 2.5 x 1.3 cm infiltrating ductal carcinoma with clear surgical margins, positive lymphovascular space invasion, T2 Left axillary sentinel lymph node biopsy showed benign adipose connective tissue as no lymph node was identified ,Nx Ki-67 23% unfavorable risk, estrogen receptor 76%, progesterone receptor 73% HER-2/ama negative Oncotype DX score checked done 08/03/2018 showed recurrence score 16, e.g. low score e.g. no apparent benefit from chemotherapy.So started on adjuvant Arimidex 1 mg by mouth daily for 5 years on 07/27/2018, Along with calcium/vitamin D supplements Follow-up mammogram done on May 01, 2020 shows BI-RADS 2 benign Came for follow-up, denies any specific complaints, except recently underwent right knee replacement, now undergoing physical therapy, otherwise no fever chills, no nausea or vomiting, no diarrhea constipation, occasionally hot flashes, much better since she is off sugar, otherwise tolerating Arimidex/vitamin D/calcium well Medications: Anastrozole 1 Tablet (of 1 mg) Oral daily, Levothyroxine Sodium 1 Tablet (of 75 mcg) Oral daily Allergies: Penicillins Review of Systems: Review of Systems is not available for this patient. Vital Signs: Performed on Nov 12, 2020 14:59 Height - 64.00 in Weight - 224.2 lbs (LOW) BSA - 2.05 sq.m BMI - 38.48 (HIGH) Temperature - 97.8 F (LOW) Pulse - 80 /min Respiration - 18 /min BP - 173/84 mm(hg) (HIGH) O2 Sat - 98 % Pain - 5 Performance Status: 0 - Fully active, able to carry on all predisease activities without restrictions. (ECOG) Physical Examination: Respiratory - Lungs are clear to auscultation, Cardiovascular - Regular rate and rhythm of heart, Gastrointestinal - Soft, bowel sounds present, Extremities - No visible edema or rash. Lab/Imaging: Most recent lab results are not available for this patient. Impression: Infiltrating ductal carcinoma status post left simple mastectomy with axillary lymph node biopsy done on 07/13/2018 Final pathology report showed 2.5 x 1.3 cm invasive mass with clear surgical margins T2 Lymphovascular space involvement present. Left axillary [place] lymph node biopsy was done but No lymph node were identified in the specimen, rather benign adipose connective tissue, Nx ER/HI positive, HER-2/ama negative Infiltrating ductal carcinoma per left breast biopsy done on 06/14/2018 grade 2 estrogen 76% positive progesterone 73% positive HER-2/ama negative Ki-67 23% Mammogram/ultrasound left breast measures mass 3 x 2.5 cm occupying the lesion between 12 to 6:00 with nipple eversion cT2,Nx,Mx Immunoperoxidase stains positive for E-cadherin and P120 catenin Oncotype DX score checked on 08/03/2018, was 16 e.g. low score, no apparent benefit from adjuvant chemotherapy, started on Arimidex 1 mg by mouth daily for 5 years on 07/27/2018, along with calcium and vitamin D supplements. Plan: Discussed with patient regarding her concerns and questions, patient is tolerating daily Arimidex/vitamin D/calcium well but occasionally hot flashes which continue to improve while she is off sugar, patient recently underwent right knee replacement, tolerated procedure well, patient has no other concerns and issues, she will return to clinic in 6 months with CBC CMP while continue with daily Arimidex along with vitamin D and calcium Signed By: Barry Khoury M.D. <<Signature on File>>
== END 2020-11-12 13:29 | disposition home or self-care (01) ==
LOC: ONCMED 13:32
PROVIDERS: PCP Family Medicine; Visit Provider Internal Medicine Hematology & Oncology
DX: C50.812 Malignant neoplasm of overlapping sites of left female breast (principal); Z17.0 Estrogen receptor positive status [ER+]; Z90.12 Acquired absence of left breast and nipple; Z79.811 Long term (current) use of aromatase inhibitors; E55.9 Vitamin D deficiency, unspecified; Z96.651 Presence of right artificial knee joint
CPT/HCPCS: 99214

== ENCOUNTER → 2020-11-13 13:14 | Outpatient (BNVA) | payer MEDICARE, OTHER, SELFPAY | PROVIDERS: PCP Family Medicine; Visit Provider Family Medicine | DX: E03.9 Hypothyroidism, unspecified (principal) | CPT/HCPCS: 84443 ==

== ENCOUNTER → 2020-11-19 10:38 | Outpatient (BNVA) | payer MEDICARE, OTHER, SELFPAY | PROVIDERS: PCP Family Medicine; Visit Provider Specialist | DX: Z96.651 Presence of right artificial knee joint (principal) | CPT/HCPCS: 73560; 73565 ==

== ENCOUNTER → 2021-02-07 07:57 | Outpatient (BNVA) | payer MEDICARE, OTHER, SELFPAY | PROVIDERS: PCP Family Medicine; Visit Provider Family Medicine | DX: E03.9 Hypothyroidism, unspecified (principal) | CPT/HCPCS: 84439; 84443 ==

== ENCOUNTER 2021-05-20 10:27 | Outpatient (CLI) | payer MEDICARE, OTHER, SELFPAY ==
[2021-05-20 11:29] LABS: Alanine Aminotransferase 27 U/L (0-33); Albumin Level 4.3 g/dL (3.5-5.2); Alkaline Phosphatase 64 IU/L (35-105); Anion Gap 13.5 (5-19); Aspartate Amino Transferase 21 U/L (0-32); Blood Urea Nitrogen 15 mg/dL (8-23); Calcium 8.6 mg/dL (8.5-10.5); Carbon Dioxide 28 mmol/L (22-29); Chloride 101 mmol/L (98-107); Globulin 3.1 g/dL (1.3-4.6); Glucose 96 mg/dL (65-115); Osmolality Calculated 287 mOsm/kg (285-295); Potassium 4.5 mmol/L (3.5-5.1); Sodium 138 mmol/L (136-145); Total Bilirubin 0.4 mg/dL (0.15-1.2); Total Protein 7.4 g/dL (6.6-8.7)
[2021-05-20 11:45] LABS: Basophils # 0.1 10^3/uL (0.0-0.1); Basophils % 1.3 %; Eosinophils # 0.2 10^3/uL (0.0-0.8); Hematocrit 40.8 % (37.0-47.0); Hemoglobin 13.5 g/dL (11.5-15.3); Lymphocytes # 2.6 10^3/uL (0.8-4.8); Lymphocytes % 34.1 %; Mean Corpuscular HGB Conc 33.1 g/dL (30.0-36.0); Mean Corpuscular Hemoglobin 31.3 pg (28.0-34.0); Mean Corpuscular Volume 94.7 fl (81-99); Mean Platelet Volume 10.5 fL (7.4-10.4); Monocytes # 0.7 10^3/uL (0.2-0.9); Monocytes % 8.6 %; Neutrophils % 52.7 %; Nucleated Red Blood Cells % 0 %; Platelet Count 303 10^3/cmm (130-400); Red Blood Count 4.31 10^6/uL (4.1-5.3); Red Cell Distribution Width 12.5 % (12.1-15.1); White Blood Count 7.6 10^3/uL (4.0-10.0)
--- NOTE | 2021-05-20 14:13 | ONC FU_ITS ---
Dr. Khoury follow up note Patient: Lisa Das Unit #: [id number]: [id number] Dicatated By: Barry Khoury M.D.Date of Visit:May 20, 2021 Onc Med Follow-up/Prog Note History of Present Illness: Mrs. Lisa Das, is a 75-year-old female with history of left breast mass underwent mammogram on 05/25/2018 which showed an angular mass which is hypoechoic posterior to the left nipple measures 2.6 x 1.6 cm and there is an additional mass at 4:00 position might about 1.5 x 0.8 cm patient underwent left breast biopsy on 06/14/2018 which showed infiltrating ductal carcinoma ER/AZ positive HER-2/ama negative Underwent left total mastectomy and left axillary sentinel lymph node biopsy on 07/13/2018 final pathology report showed 2.5 x 1.3 cm infiltrating ductal carcinoma with clear surgical margins, positive lymphovascular space invasion, T2 Left axillary sentinel lymph node biopsy showed benign adipose connective tissue as no lymph node was identified ,Nx Ki-67 23% unfavorable risk, estrogen receptor 76%, progesterone receptor 73% HER-2/ama negative Oncotype DX score checked done 08/03/2018 showed recurrence score 16, e.g. low score e.g. no apparent benefit from chemotherapy.So started on adjuvant Arimidex 1 mg by mouth daily for 5 years on 07/27/2018, Along with calcium/vitamin D supplements Follow-up mammogram done on May 01, 2020 shows BI-RADS 2 benign Came for follow-up, denies any specific complaints, no fever chills, no nausea or vomiting, no diarrhea constipation, no headaches blurred vision double vision, occasionally hot flashes otherwise tolerating Arimidex along with vitamin D and calcium well Medications: Anastrozole 1 Tablet (of 1 mg) Oral daily, Levothyroxine Sodium 1 Tablet (of 75 mcg) Oral daily Allergies: Penicillins Review of Systems: Review of Systems is not available for this patient. Vital Signs: Vitals are not available for this patient. Performance Status: 0 - Fully active, able to carry on all predisease activities without restrictions. (ECOG) Physical Examination: Respiratory - Lungs are clear to auscultation, Cardiovascular - Regular rate and rhythm of heart, Gastrointestinal - Soft, bowel sounds present, Extremities - No visible edema. Lab/Imaging: Most recent lab results are not available for this patient. Impression: Infiltrating ductal carcinoma status post left simple mastectomy with axillary lymph node biopsy done on 07/13/2018 Final pathology report showed 2.5 x 1.3 cm invasive mass with clear surgical margins T2 Lymphovascular space involvement present. Left axillary [place] lymph node biopsy was done but No lymph node were identified in the specimen, rather benign adipose connective tissue, Nx ER/AZ positive, HER-2/ama negative Infiltrating ductal carcinoma per left breast biopsy done on 06/14/2018 grade 2 estrogen 76% positive progesterone 73% positive HER-2/ama negative Ki-67 23% Mammogram/ultrasound left breast measures mass 3 x 2.5 cm occupying the lesion between 12 to 6:00 with nipple eversion cT2,Nx,Mx Immunoperoxidase stains positive for E-cadherin and P120 catenin Oncotype DX score checked on 08/03/2018, was 16 e.g. low score, no apparent benefit from adjuvant chemotherapy, started on Arimidex 1 mg by mouth daily for 5 years on 07/27/2018, along with calcium and vitamin D supplements. Plan: Discussed with patient regarding her labs white blood count 7.6 hemoglobin 13.5 hematocrit 40.8 platelets 303,000 CMP within normal limits Clinically, patient doing well with no new signs suggestive of recurrence of disease, tolerating Arimidex/vitamin D/calcium well, she return to clinic in 6 months With follow-up mammogram Signed By: Barry Khoury M.D. <<Signature on File>>
== END 2021-05-20 10:28 | disposition home or self-care (01) ==
LOC: ONCMED 10:30
PROVIDERS: PCP Family Medicine; Visit Provider Internal Medicine Hematology & Oncology
DX: C50.812 Malignant neoplasm of overlapping sites of left female breast (principal); Z17.0 Estrogen receptor positive status [ER+]; E55.9 Vitamin D deficiency, unspecified; Z79.818 Long term (current) use of other agents affecting estrogen receptors and estrogen levels; Z79.899 Other long term (current) drug therapy
CPT/HCPCS: 36415; 80053; 85025; 99214

== ENCOUNTER 2021-05-28 09:35 | Outpatient (CLI) | payer MEDICARE, OTHER, SELFPAY ==
--- NOTE | 2021-05-28 09:45 | MM_ITS ---
WS: [id number] Exam: [place] [id number] Date/Time of Exam: 05/28/2021 9:45 AM Reason For Exam: HX OF BREAST CA;LT MASTECTOMY VIEWS: MLO, CC, and ML right breast only Comparison made with prior exam of 05/01/2020. Findings: There was no sign of mass, architectural distortion or suspicious calcification in either breast. Fa tty MM/[place] [id number] Impression: BI-RADS: 2-Benign FOLLOW-UP: 1 Year Follow-up This mammogram was also analyzed by the Computer Aided Detection System R2 Imag e Tile Setter Apprentice.
== END 2021-05-28 09:36 | disposition home or self-care (01) ==
PROVIDERS: PCP Family Medicine; Visit Provider Internal Medicine Hematology & Oncology
DX: Z85.3 Personal history of malignant neoplasm of breast (principal); Z90.12 Acquired absence of left breast and nipple
CPT/HCPCS: 77065

== ENCOUNTER → 2021-06-17 15:27 | Outpatient (BNVA) | payer MEDICARE, OTHER, SELFPAY | PROVIDERS: PCP Family Medicine; Visit Provider Specialist | DX: Z96.651 Presence of right artificial knee joint (principal) | CPT/HCPCS: 73560; 73565 ==

== ENCOUNTER → 2021-12-18 12:58 | Outpatient (BNVA) | payer MEDICARE, OTHER, SELFPAY | PROVIDERS: PCP Family Medicine; Visit Provider Specialist | DX: Z96.651 Presence of right artificial knee joint (principal); M17.12 Unilateral primary osteoarthritis, left knee | CPT/HCPCS: 73560; 73565; 99213 ==

== ENCOUNTER 2022-01-13 15:53 | Oncology outpatient (recurring) (ONCR) | payer MEDICARE, OTHER, SELFPAY | END 2022-02-05 23:59 | disposition home or self-care (01) | PROVIDERS: PCP Family Medicine; Visit Provider Internal Medicine Hematology & Oncology | DX: C50.812 Malignant neoplasm of overlapping sites of left female breast (principal); Z17.0 Estrogen receptor positive status [ER+]; Z90.12 Acquired absence of left breast and nipple; Z79.818 Long term (current) use of other agents affecting estrogen receptors and estrogen levels | CPT/HCPCS: 99214 ==

== ENCOUNTER → 2022-01-27 12:45 | Outpatient (BNVA) | payer MEDICARE, OTHER, SELFPAY | PROVIDERS: PCP Family Medicine; Visit Provider Specialist | DX: M17.12 Unilateral primary osteoarthritis, left knee (principal); Z96.651 Presence of right artificial knee joint; Z96.659 Presence of unspecified artificial knee joint | CPT/HCPCS: 73560; 73565; 99214 ==

== ENCOUNTER 2022-02-04 06:00 | Outpatient (CLI) | payer MEDICARE, OTHER, SELFPAY | END 2022-02-04 06:01 | disposition home or self-care (01) | LOC: RT 02-05 09:14 | PROVIDERS: PCP Family Medicine; Visit Provider Anesthesiology | DX: Z01.818 Encounter for other preprocedural examination (principal) | CPT/HCPCS: 93005 ==

== ENCOUNTER 2022-02-18 12:07 | Observation (INO) | payer MEDICARE, OTHER, SELFPAY ==
[2022-02-04 13:10] VITALS: BMI 37.9
--- NOTE | 2022-02-04 13:33 | ECG_ITS ---
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 Measurements Intervals [place] Rate: 72 P: 21 FL: 165 QRS: -20 QRSD: 81 T: 56 QT: 401 QTc: 439 Interpretive Statements SINUS RHYTHM WITH SINUS ARRHYTHMIA NONSPECIFIC T-WAVE ABNORMALITY Compared to ECG 08/06/2020 10:11:55 T-wave abnormality now present Sinus bradycardia no longer present Electronically Signed On 02-04-2022 21:31:19 CDT by Max Shannon M.D. [id number]
[2022-02-04 14:01] LABS: Add Urine Microscopic? YES; Bilirubin Urine Neg (Negative); Blood Urine 2+ (Negative); Glucose Urine UA Norm (Normal); Ketones Urine Negative (Negative); Leukocyte Esterase Urine 1+ (Negative); Nitrate Urine Positive (Negative); Protein Urine Neg (Negative); Specific Gravity, Urine 1.025 (1.005-1.030); Urine Appearance Clear (CLEAR); Urine Color Yellow (Yellow); Urobilinogen Urine Norm (Negative); pH Urine 6.5 (5-7)
[2022-02-04 14:04] LABS: Basophils # 0.1 10^3/uL (0.0-0.1); Basophils % 1.2 %; Eosinophils # 0.3 10^3/uL (0.0-0.8); Eosinophils % 3.3 %; Hematocrit 40.3 % (37.0-47.0); Hemoglobin 13.5 g/dL (11.5-15.3); Lymphocytes # 2.2 10^3/uL (0.8-4.8); Lymphocytes % 27.9 %; Mean Corpuscular HGB Conc 33.5 g/dL (30.0-36.0); Mean Corpuscular Hemoglobin 31.8 pg (28.0-34.0); Mean Platelet Volume 11.3 fL (7.4-10.4); Monocytes # 0.6 10^3/uL (0.2-0.9); Monocytes % 7.2 %; Neutrophils # 4.69 10^3/uL (1.8-7.7); Neutrophils % 60.1 %; Nucleated Red Blood Cells % 0 %; Platelet Count 259 10^3/cmm (130-400); Red Blood Count 4.24 10^6/uL (4.1-5.3); Red Cell Distribution Width 12.8 % (12.1-15.1); White Blood Count 7.8 10^3/uL (4.0-10.0)
[2022-02-04 14:08] LABS: Add Urine Culture? Yes; Bacteria Urine TRACE /hpf; RBC Urine 0-4 /hpf (0-2); WBC Urine 0-4 /hpf (0-5)
[2022-02-04 14:23] LABS: Alanine Aminotransferase 37 U/L (0-33); Albumin Level 4.5 g/dL (3.5-5.2); Alkaline Phosphatase 62 U/L (35-105); Anion Gap 14.2 (5-19); Aspartate Amino Transferase 23 U/L (0-32); Blood Urea Nitrogen 29 mg/dL (8-23); Calcium 9.4 mg/dL (8.5-10.5); Carbon Dioxide 27 mmol/L (22-29); Chloride 101 mmol/L (98-107); Glucose 96 mg/dL (65-115); Osmolality Calculated 292 mOsm/kg (285-295); Potassium 4.2 mmol/L (3.5-5.1); Sodium 138 mmol/L (136-145); Total Bilirubin 0.2 mg/dL (0.15-1.2); Total Protein 7.5 g/dL (6.6-8.7)
--- NOTE | 2022-02-04 15:03 | ANES.PREANE2 ---
Pre-Anesthetic Assessment Height/Weight: Height 1.63 m Weight 100.244 kg Preop Diagnosis: Osteoarthritis right knee with valgus deformity Operation Date: 02/18/22 07:00 Proposed Procedures p Left Total Knee Arthroplasty 11793,M17.10(Left) - Ewelina Moon MD Familial anesthetic complications: none Was Beta Eliud taken within 24 hours: N/A Was Clonidine taken within 24 hours: N/A Social No alcohol and No tobacco Exam alert, oriented x 3, clear to auscultation bilaterally and regular rate & rhythm Airway Submandibular: within normal limits Cervical ROM: within normal limits Mallampati: Class I Dentition: full History/ROS No significant complaints Pulmonary None reported CV/HEM None reported None reported Hepatic None reported GI None reported Metabolic Thyroid Disease Obesity Musc/skel Osteoarthritis/DJD Hx of breast cancer Neuropsych None reported Anesthetic Plan ASA status: 2 Anesthesia: Anesthesia Evaluation, General and Regional (specify below) (Adductor canal block ) Other: We discussed risk and benefits of general vs spinal anesthesia including DVT risk, infection, paralysis/catastrophic nerve injury, back bruising/pain, PDPH, conversion to general in case of spinal, PONV, sore throat (sometimes severe), corneal abrasion, positioning and peripheral nerve injuries, life threatening allergic reaction, post operative ICU admission requiring prolonged intubation, stroke, heart attack, , post operative delirium and/or post operative cognitive decline, and rare incidences of recall (under general anesthesia). We discussed risk and benefits of nerve block for post op pain control including management of pain and titration of pain medications as signs/symptoms of nerve block wearing off begin to appear and/or prior bed. We discussed risk of failed nerve block, vascular injury or other vital structure injury, abscess/infection, LAST, and nerve injury. Patient consents to general with adductor canal block for post op pain control. Risk of > 500 ml blood loss (7ml/kg in children): No Medications/Allergies Home Medications Medication Instructions Recorded Confirmed Last Taken Type multivitamin 1 tab PO DAILY 08/06/20 02/04/22 08/20/20 History anastrozole 1 mg tablet 1 mg PO QDAY #90 tabs 11/21/21 02/04/22 Unknown Rx levothyroxine 50 mcg tablet 50 mcg PO DAILY 90 days #90 tabs 01/30/22 02/04/22 Unknown Rx Allergies Allergy/AdvReac Type Severity Reaction Status Date / Time Penicillins Allergy Swelling Verified 02/04/22 13:09 to face [facility] Anesthesia Medical History Breast cancer Breast cancer, left breast Hypothyroidism Surgical History H/O: hysterectomy S/P cholecystectomy S/P mastectomy On left Family History Mother Cancer Breast Stroke Father CAD (coronary artery disease) Denies family history of Diabetes Clotting disorder Dementia Hyperlipidemia Psychiatric illness Chronic kidney disease (CKD) Suicide Anesthesia complication Bleeding disorder Lung disease Hypertension Social History Smoking and tobacco status: never smoked Alcohol intake: never Lives independently: No Household members: spouse Marital status: Current gender identity: Female Female Reproductive History Para: 1 Spontaneous abortions: No Data Anesthesia : 02/04/22 13:25 02/04/22 13:25 Short CBC 02/04/22 Range/Units 13:25 WBC 7.8 (4.0-10.0) 10^3/uL Hgb 13.5 (11.5-15.3) g/dL Hct 40.3 (37.0-47.0) % MCV 95.0 (81-99) fl Plt Count 259 (130-400) 10^3/cmm Neut % (Auto) 60.1 % Neut # (Auto) 4.69 (1.8-7.7) 10^3/uL BMP 02/04/22 13:25 Sodium 138 Potassium 4.2 Chloride 101 Carbon Dioxide 27 BUN 29 H Creatinine 0.5 Glucose 96 Calcium 9.4 Liver Function 02/04/22 Range/Units 13:25 Total Bilirubin 0.2 (0.15-1.2) mg/dL AST 23 (0-32) U/L ALT 37 H (0-33) U/L Alkaline Phosphatase 62 (35-105) U/L Albumin 4.5 (3.5-5.2) g/dL Urine 02/04/22 Range/Units 13:25 Urine Color Yellow (Yellow) Urine Appearance Clear (CLEAR) Urine pH 6.5 (5-7) Ur Specific [place] 1.025 (1.005-1.030) Urine Protein Neg (Negative) Urine Glucose (UA) Norm (Normal) Urine Ketones Negative (Negative) Urine Nitrate Positive H (Negative) Urine Bilirubin Neg (Negative) Ur Leukocyte Esterase 1+ H (Negative) Urine RBC 0-4 H (0-2) /hpf Urine WBC 0-4 H (0-5) /hpf Cardiac Studies: No Data to Display
[2022-02-18] VITALS (20 sets, daily range): BP systolic 114–175; BP diastolic 59–124; PULSE 60–85; RESP 11–23; TEMP 36.1–36.6; O2SAT 92–100
[2022-02-18] MEDS: CELEcoxib 200 mg Capsule 400 MG PO (05:56)
[2022-02-18] MEDS: sodium chloride 0.9% 1,000 ML 30 ML IV (05:59)
[2022-02-18] MEDS: acetaminophen 1,000 MG/100 ML PIGGYBACK 400 MG IV ×3 (06:02→22:03)
--- NOTE | 2022-02-18 06:18 | P.ANESUD_ITS ---
Pre-Anesthetic Update Pre-Anesthetic Assessment: Date of Surgery/Procedure: 02/18/22 Preop Sherin gnosis: Left knee degenerative osteoarthritis Proposed Procedure: Operation Date: 02/18/22 07:00 Proposed Procedures p Left Total Knee Arthroplasty 37502,M17.10(Left) - Ewelina Mono MD Any changes to Pre-Anesthetic Assessment?: No Last Intake: Intake Last Liquid Date 02/17/22 Last Liquid Time 21:00 Last Solid Date 02/17/22 Last Solid Time 21:00 Vitals: Temperature 97.6 F 02/18/22 05:37 Pulse Rate 62 02/18/22 05:37 Respiratory Rate 16 02/18/22 05:37 Blood Pressure 175/124 02/18/22 05:37 Blood Pressure Dolores n 141 02/18/22 05:37 Pulse Oximetry 98 02/18/22 05:37 Exam: Pre-Anes Outpt Exam: alert, oriented x 3, clear to auscultation bilaterally and regular rate & rhythm Cardiac Studies: No Data to Display
--- NOTE | 2022-02-18 06:53 | P.HPUD_ITS ---
Surgery/Procedure H&P Update DATE OF PROCEDURE: February 18, 2022 DATE H&P PERFORMED: 01/27/22 H&P UPDATE INFORMATION: I have reviewed H&P completed within last 30 days, I have examined patient prior to procedure, No changes to prior documentation and H&P is in [facility] EMR on date indicated PREOP DIAGNOSIS: Left knee degenerative osteoarthritis PLANNED PROCEDURE: Operation Date: 02/18/22 07:00 Proposed Procedures p Left Total Knee Arthroplasty 83945,M17.10(Left) - Ewelina Moon MD Related Problem List Diagnoses (1) Osteoarthritis of left knee: Qualifiers: Osteoarthritis type: primary Qualified Code(s): M17.12 - Unilateral primary osteoarthritis, left knee
[2022-02-18] MEDS: vancomycin 1,000 MG in sodium chloride 0.9% 250 ML 250 MG IV (07:00)
[2022-02-18] MEDS: vancomycin 1,000 MG SDV 2000 MG IRRIGATION (08:06)
[2022-02-18] MEDS: vancomycin 1,000 MG SDV 1000 MG XX (08:06)
[2022-02-18] MEDS: tranexamic acid 1,000 mg/10mL SDV 1000 MG IV (08:51)
--- NOTE | 2022-02-18 09:33 | XRR_ITS ---
PROCEDURE INFORMATION: Exam: XR Left Knee Exam date and time: 02/18/2022 9:43 AM Age: 77 years old Clinical indication: Device placement; Joint replacement hardware; Prior surgery; Surgery date: Post-operative (0-2 days); Surgery type: Total lt knee arthroplasty; Additional info: Status post total knee arthroplasty TECHNIQUE: Imaging protocol: Radiologic exam of the Left knee. Views: 3 views. COMPARISON: CR (KNEE AP, KNEE, KNEE AP) 01/27/2022 12:47 PM FINDINGS: Bones/joints: Left total knee arthroplasty noted. No fracture or dislocation identified. Soft tissues: Expected postsurgical subcutaneous emphysema and surgical shai noted. XR/XR knee LT 3V* [id number] IMPRESSION: Normal appearing left total knee arthroplasty.
--- NOTE | 2022-02-18 09:35 | P.OP_ITS ---
Operative Report Date of procedure: February 18, 2022 Pre-op diagnosis: Osteoarthritis left knee with valgus deformity Post-op diagnosis: Osteoarthritis left knee with valgus deformity Post-op findings: Significant valgus deformity with osteoarthritic change and osteophytes Procedure done: Left total knee arthroplasty Implants: The Joni total knee system with a size 3 triathlon beaded posterior stabilized femur left, a triathlon titanium tibial component size 2 beaded, a triathlon X3 posterior stabilized tibial bearing insert size 2 X 11 mm and a beaded triathlon titanium asymmetric patella size 29 x 9 mm Specimens removed/disposition: Bone, disposed of Pathology: none sent Surgeon: Ewelina Moon Barrelhead Inspector[facility] Anesthesia: General (Intubated, ASA 2) Estimated blood loss (mL): 150 Tourniquet time (min): 53 (At 250 mmHg) IV fluids (mL): 1,000 Urine output (mL): 400 Complications: None Findings: Severe degenerative osteoarthritic change with valgus deformity and no flexion contracture Condition: stable Disposition: PACU (Then to floor for postoperative rehabilitation and monitoring under observation status) Brief History: This 77-year-old woman presented to the office with severe left knee pain which was incapacitating.? The patient is status post right total knee arthroplasty and she has done very well following this. She has now noted increasing left knee pain causing her to be unable to ambulate or perform reasonable activities of daily living.? None of these activities were able to be accomplished comfortably.? She was unresponsive to conservative measures and wished to proceed with left total knee arthroplasty risks and complications were discussed.? Consents were signed preoperatively, and questions were answered.? The patient wished to proceed. Procedure: The patient was brought to the operating theater, and after undergoing adequate general anesthesia supplemented with regional block and sedation, ASA 2, the left lower extremity was prepped with Dura-Prep and draped in usual fashion following placement of a tourniquet high on the leg. The leg was then draped free. Following prepping and draping, the leg was exsanguinated, and the tourniquet was elevated to 250 mmHg for a total tourniquet time of 52 minutes.? Prior to elevation of the tourniquet, but following exposure of the site of surgery, a surgical pause was performed. At the time of the surgical pause, we confirmed the site and side of surgery. Additionally, we confirmed the appropriate and timely administration of preoperative antibiotics, vancomycin 1 g. and Transexemic acid 1 g. The availability of equipment was confirmed, and the patient's identity was verbalized as well. Following the surgical pause, an incision was made centering over the patella continuing proximally and distally as necessary to allow access to the knee joint. Dissection continued through skin and soft tissues using a scalpel. Hemostasis was obtained using electrocautery. The skin incision was followed by a median parapatellar arthrotomy. The leg was extended and the patella was ever samuel. Following this, the leg was returned to flexed position.? The distal femur was exposed and a drill hole was made in this for placement of the distal femoral jig. The distal femoral jig was set at 5? of valgus. The distal femoral cutting block was then placed in appropriate position, and an alexandra wing was used to confirm an appropriate amount of distal femur would be resected.? The distal femoral resection was accomplished with 8 mm of bone being resected distally.? After the distal femoral resection had been accomplished, the femur was measured and it measured a size 3.? Medial lateral dimension also measured a size 3.? A size 3 femoral cutting block was placed in position, and we were then able to accomplish the anterior, posterior and chamfer cuts. This jig was then removed and the notch guide was placed in position. With the notch guide in appropriate position, the notch was excised including resection of the anterior and posterior cruciate ligaments. This notch was to allow for the posterior stabilized femoral component. At this point, the femur was prepared and attention was directed to the proximal tibia. The posterior knee retractor was placed along with medial and lateral retractors. Further resection of the menisci was accomplished as we had better visualization. A complete meniscectomy was performed both medially and laterally with care being taken to protect the popliteus. Retractors were then placed so that the proximal tibia was well visualized. A drill hole was then made in the tibia for placement of the intramedullary guide. This guide was placed so that approximately 2 mm of bone would be resected from the deficient lateral tibial plateau. The intramedullary guide was utilized supplemented with an extramedullary guide to assure appropriate alignment for the proximal tibial resection. The proximal tibial jig was then evaluated, pinned in position, and the proximal tibial resection was accomplished without difficulty. The jig was removed, and the proximal tibia was measured. It measured a size 2. We then attempted a trial reduction with a size 2 by 11 mm insert.? Osteophytes were also removed from the tibia.? The femoral component was placed in position for the trial reduction, and the knee was placed through range of motion.? With this, there was excellent stability with excellent varus-valgus alignment with appropriate patellar tracking.? Extension was noted to be full as well.? This was felt to be the appropriate size insert. There was full extension and flexion without lift off and the rotation of the tibia was marked.? Alignment was checked from the hip to the ankle, and this was noted to be appropriate as well. Attention was then directed to the patella. The patella was measured with a caliper.? We resected sufficient patella to leave approximately 14 mm of patella remaining.? Measurements of the patella then indicated that a size asymmetric 29 mm x 9 mm was the appropriate patellar size. We then placed the jig to drill for the 3 pegs of the press-fit patella, and these drill holes were made without incident. A trial patella was then placed, and the knee was placed through range of motion. The patella was noted to track nicely without evidence of subluxation.? The femur was prepared for a press-fit femur by drilling 2 holes for the femoral pegs.? All trial components were subsequently removed. The tibial tray was then pinned into position, and we broached the tibia for the stem of the tibial component.? Subsequently, 4 drill holes were made for placement of the press-fit tibia.? This was accomplished without difficulty. Care was taken to assure appropriate rotation of the tibia as well as appropriate position on the proximal tibia. The tibial tray was completely seated on the proximal tibia. Following broaching, the tibial guide was removed, and all surfaces were copiously irrigated. The surfaces were then dried and a bone plug was placed into the distal femur.? Exparel was also injected at this point. The Tritanium tibia was impacted into position.? The beaded femur was then impacted into position in a cementless fashion. The tibial insert was placed. The patella was pressed into position with a patellar clamp.? The knee was irrigated with 20 mL of Betadine and 500 mL of normal saline, and this was allowed to remain in the knee for 3-4 minutes.? The knee was then copiously irrigated and suctioned dry. Attention was then directed to closure. Closure was accomplished with 0 Vicryl in the fascial tissues.? Following this, a 2-0 Monocryl was used in the subcutaneous tissues, and the skin was closed with skin shai. A sterile dressing was then placed consisting of Dermabond Prineo, Op Site, sterile soft roll, and an Cody wrap. The patient was returned the Recovery Room in a satisfactory condition. X-rays were obtained there.? The patient will be discharged to the floor for postoperative rehabilitation and pain management. Related Problem List Diagnoses (1) Osteoarthritis of left knee:
--- NOTE | 2022-02-18 10:28 | ANES.PROC ---
Anesthesia Procedures Procedure/Date: 02/18/22 Nerve Block ^: Nerve Block 1: Main Anesthesia: general anesthesia Time Out Performed: Yes Consent: requested by attending/covering physician, from patient, risks and benefits reviewed and patient agrees to proceed Nerve block location: adductor canal Anesthesia monitors applied: pulse oximetry, EKG, BP cuff and oxygen Nerve block position: supine Anesthetic Used: ropivicaine 0.5% Amount of anesthesia used (mL): 20 Ultrasound used to: recognize landmarks and visualize and ID femerol nerve Nerve Stimulator Used?: No Interscalene/Femoral BLK: 4 stimuplex 21 g needle used for position and inplane approach, visualize local anesthetic spread and no vascular puncture identified Injection: neg aspiration of heme Patient Tolerated Procedure: well Complications: none Additional Comments: After time out sterile prep, using sterile technique, and using real time US guidance for target selection needle was inserted with real time visualization of needle entry and real time visualization of needle advancement toward intended target. Negative aspiration. LA injected incrementally with negative aspiration every 5 cc and real time US visualization of LA spread throughout procedure. Tolerated well. Image(s) saved.
[2022-02-18] MEDS: oxyCODONE 5 mg IR Tab/Cap PO ×2 (11:04→15:57)
--- NOTE | 2022-02-18 11:19 | SUR.PHASEI ---
patient room air sat ranges from 85% at times to 92% at times. 2L O2 applied per nasal cannula
--- NOTE | 2022-02-18 12:14 | PC.NURSE ---
Report given to this RN from Elliot PAVON.
--- NOTE | 2022-02-18 12:14 | SUR.EXTENDED ---
report called to manuel ramos. patient transported to ob awake and alert, dressig to left knee dry and intact. pt present.
[2022-02-18] MEDS: anastrozole 1 mg Tablet PO (13:21)
[2022-02-18] MEDS: chlorhexidine gluconate 0.12% Btl 473 mL 30 ML MUCOUS MEM ×3 (13:22→22:03)
--- NOTE | 2022-02-18 14:20 | PC.NURSE ---
PT notified by RN that patient is able to move feet, states that she has some numbness but better then when she arrived to floor. PT states they will be to floor shortly. CONRADO PAVON
[2022-02-18] MEDS: sodium chloride 0.45% 1,000 ML 30 ML IV (14:29)
--- NOTE | 2022-02-18 15:24 | ANE.PACU2 ---
Inpatient post-anesthesia follow up: Airway intact: Yes Vital signs: Temperature 97.5 F Pulse Rate 62 Respiratory Rate 16 Blood Pressure 130/75 Pulse Oximetry 95 Oxygen Delivery Me thod Nasal Cannula Oxygen Flow Rate 2 Fraction of Inspir ed Oxygen Hydration adequate: Yes Nausea and vomiting: No Pain level: 1 Mental status: Baseline
[2022-02-18] MEDS: TRAMadol 50 mg Tablet PO (16:31)
[2022-02-18] MEDS: ondansetron 2 mg/ML SDV 2 mL 4 MG IVP (17:40)
[2022-02-18] MEDS: CELEcoxib 200 mg Capsule PO (18:25)
[2022-02-18] MEDS: sennosides-docusate Tablet 2 TAB PO (18:26)
[2022-02-18] MEDS: iron polysaccharide complex 150 mg Capsule PO (18:26)
[2022-02-18] MEDS: calcium carbonate 500 mg Chew Tablet 1000 MG PO (18:27)
[2022-02-18] MEDS: mupirocin oint 22 gm 1 APPLIC NASAL (19:17)
[2022-02-19 02:25] VITALS: RESP 16
[2022-02-19] MEDS: oxyCODONE 5 mg IR Tab/Cap PO ×3 (02:25→11:03)
[2022-02-19 04:15] VITALS: BP 118/71; PULSE 69; TEMP 36.7; O2SAT 98
[2022-02-19 04:52] LABS: Basophils % 0.2 %; Eosinophils # 0.1 10^3/uL (0.0-0.8); Eosinophils % 0.4 %; Hematocrit 36.5 % (37.0-47.0); Lymphocytes # 1.8 10^3/uL (0.8-4.8); Lymphocytes % 14.9 %; Mean Corpuscular HGB Conc 32.9 g/dL (30.0-36.0); Mean Corpuscular Hemoglobin 31.9 pg (28.0-34.0); Mean Corpuscular Volume 97.1 fl (81-99); Mean Platelet Volume 11.1 fL (7.4-10.4); Monocytes # 1.2 10^3/uL (0.2-0.9); Monocytes % 9.5 %; Neutrophils # 9.14 10^3/uL (1.8-7.7); Neutrophils % 74.7 %; Nucleated Red Blood Cells % 0 %; Platelet Count 236 10^3/cmm (130-400); Red Blood Count 3.76 10^6/uL (4.1-5.3); Red Cell Distribution Width 12.7 % (12.1-15.1); White Blood Count 12.2 10^3/uL (4.0-10.0)
[2022-02-19 05:03] LABS: Anion Gap 14.3 (5-19); Blood Urea Nitrogen 13 mg/dL (8-23); Calcium 8.6 mg/dL (8.5-10.5); Carbon Dioxide 25 mmol/L (22-29); Chloride 103 mmol/L (98-107); Glucose 110 mg/dL (65-115); Osmolality Calculated 287 mOsm/kg (285-295); Potassium 4.3 mmol/L (3.5-5.1); Sodium 138 mmol/L (136-145)
[2022-02-19] MEDS: CELEcoxib 200 mg Capsule PO (05:58)
[2022-02-19] MEDS: acetaminophen 1,000 MG/100 ML PIGGYBACK 400 MG IV (05:59)
[2022-02-19] MEDS: vancomycin 1,000 MG in sodium chloride 0.9% 250 ML 250 MG IV (06:57)
[2022-02-19] MEDS: cholecalciferol (vitamin D3) 1,000 unit Tablet 1000 UNIT PO (07:28)
[2022-02-19] MEDS: mupirocin oint 22 gm 1 APPLIC NASAL (07:28)
[2022-02-19] MEDS: chlorhexidine gluconate 0.12% Btl 473 mL 30 ML MUCOUS MEM (07:28)
[2022-02-19] MEDS: levothyroxine 50 mcg Tablet PO (07:29)
[2022-02-19] MEDS: sennosides-docusate Tablet 2 TAB PO (07:29)
[2022-02-19] MEDS: calcium carbonate 500 mg Chew Tablet 1000 MG PO (07:29)
[2022-02-19] MEDS: iron polysaccharide complex 150 mg Capsule PO (07:29)
[2022-02-19] MEDS: aspirin 325 mg EC Tablet PO (07:30)
[2022-02-19] MEDS: anastrozole 1 mg Tablet PO (07:30)
[2022-02-19 07:31] VITALS: RESP 16
--- NOTE | 2022-02-19 08:00 | PC.NURSE ---
Gonzalo with PT notified at this time patient has had pain medication and ready for therapy. CONRADO PAVON
[2022-02-19 10:00] VITALS: BP 110/62; PULSE 59; RESP 15; TEMP 36.6; O2SAT 96
[2022-02-19] MEDS: TRAMadol 50 mg Tablet PO ×2 (10:04→14:19)
[2022-02-19] MEDS: multivitamin therapeutic Tablet 1 TAB PO (10:04)
--- NOTE | 2022-02-19 11:00 | PC.NURSE ---
Dr. Moon notified of breakthrough pain. Orders received to give oxycodone IR 5 mg at this time. CONRADO RN
[2022-02-19 11:03] VITALS: RESP 18
--- NOTE | 2022-02-19 13:21 | PC.NURSE ---
Dr. Moon at bedside. Orders received for discharge. CONRADO PAVON
[2022-02-19] MEDS: acetaminophen 500 mg Tablet 1000 MG PO (14:18)
--- NOTE | 2022-02-19 14:29 | P.DS_ITS ---
Discharge Providers Date of Admission: 02/18/22 12:07 Date of Discharge: February 19, 2022 Attending Provider at Admission: Ewelina Moon MD Attending Provider at Discharge: Ewelina Moon MD Primary Care Provider: Fannie Soler DO Diagnoses at Discharge Discharge Diagnosis (1) Status post total left knee replacement not using cement: Status: Acute Permanent problem details: Date of procedure: February 18, 2022 Diagnosis: Osteoarthritis left knee with valgus deformity Post-op findings: Significant valgus deformity with osteoarthritic change and osteophytes Procedure done: Left total knee arthroplasty Implants: The Newser total knee system with a size 3 triathlon beaded posterior stabilized femur left, a triathlon titanium tibial component size 2 beaded, a triathlon X3 posterior stabilized tibial bearing insert size 2 X 11 mm and a beaded triathlon titanium asymmetric patella size 29 x 9 mm (2) Osteoarthritis of left knee: Status: Acute Qualifiers: Osteoarthritis type: primary Qualified Code(s): M17.12 - Unilateral primary osteoarthritis, left knee Reason for Visit Reason for Visit: Brief History: This 77-year-old woman presented to the office with severe left knee pain which was incapacitating.? The patient is status post right total knee arthroplasty and she has done very well following this.? She has now noted increasing left knee pain causing her to be unable to ambulate or perform reasonable activities of daily living.? None of these activities were able to be accomplished comfortably.? She was unresponsive to conservative measures and wished to proceed with left total knee arthroplasty risks and complications were discussed.? Consents were signed preoperatively, and questions were answered.? The patient wished to proceed. Hospital Course Hospital Course Patient was brought to the hospital for same-day surgery in the form of left total knee arthroplasty. This was accomplished for her and she was admitted under observation status overnight for postoperative recovery and rehabilitation as well as pain management. The patient did well and wished to be discharged home. Prior to her discharge, her dressing was removed. There was no significant drainage. The clear OpSite dressing was left in place. The calf was soft and nontender. There was no evidence of DVT. Physical Exam Const: COMMON NORMALS: no acute distress, average body habitus, patient oriented x3 and alert GENERAL APPEARANCE: cooperative and comfortable ORIENTATION/CONSCIOUSNESS: Yes awake HENMT: COMMON NORMALS: normocephalic and atraumatic HEAD & SCALP: normocephalic and atraumatic Eye: GENERAL EYE: appearance normal, both eyes and all related structures Chest: COMMONS NORMALS: normal inspection of the chest Resp: COMMON NORMALS: normal respiratory effort EFFORT & INSPECTION: Yes able to speak in complete sentences and Yes symmetric chest movement Extremity: LEFT LOWER EXTREMITY: Yes knee joint (Dressing is removed, and there is minimal to no drainage.) Left knee: Yes inspection (No significant ecchymosis.), Yes palpation (No tenderness to palpation or evidence of DVT.) and Yes neurovascular exam (Intact distally.) Neuro: COMMON NORMALS: patient oriented x3 SENSORIUM/ORIENTATION: Yes alert Psych: COMMON NORMALS: mental status grossly normal APPEARANCE: Yes grossly normal ATTITUDE: Yes calm and Yes engaged ATTENTION/CONCENTRATION: Yes attention grossly intact Skin: COMMON NORMALS: no rashes or lesions noted GENERAL SKIN EXAM: no rashes or lesions noted Urinary Catheter Management: [place]: Cath Placed During This Visit: yes, but has since been removed by the nurse Reason for Continuing Indwelling Catheter: Not indwelling catheter Urinary Catheter Date of Insertion: 02/18/22 Urinary Catheter Time of Insertion: 07:15 Date Urinary Catheter Removed: 02/19/22 Time Urinary Catheter Discontinued: 11:00 Discharge Data Studies Completed and Pending Completed Studies During Hospitalization Category Date Time Status XR knee LT 3V* [id number] Urgent Exams 02/18/22 09:33 Completed Radiology Impressions Knee X-Ray 02/18/22 09:33 IMPRESSION: Normal appearing left total knee arthroplasty. Laboratory Results WBC 12.2 10^3/uL (4.0-10.0) H 02/19/22 04:13 RBC 3.76 10^6/uL (4.1-5.3) L 02/19/22 04:13 Hgb 12.0 g/dL (11.5-15.3) 02/19/22 04:13 Hct 36.5 % (37.0-47.0) L 02/19/22 04:13 MCV 97.1 fl (81-99) 02/19/22 04:13 MCH 31.9 pg (28.0-34.0) 02/19/22 04:13 MCHC 32.9 g/dL (30.0-36.0) 02/19/22 04:13 RDW 12.7 % (12.1-15.1) 02/19/22 04:13 Plt Count 236 10^3/cmm (130-400) 02/19/22 04:13 MPV 11.1 fL (7.4-10.4) H 02/19/22 04:13 Neut % (Auto) 74.7 % 02/19/22 04:13 Lymph % (Auto) 14.9 % 02/19/22 04:13 [place] % (Auto) 9.5 % 02/19/22 04:13 Eos % (Auto) 0.4 % 02/19/22 04:13 Baso % (Auto) 0.2 % 02/19/22 04:13 Neut # (Auto) 9.14 10^3/uL (1.8-7.7) H 02/19/22 04:13 Lymph # (Auto) 1.8 10^3/uL (0.8-4.8) 02/19/22 04:13 [place] # (Auto) 1.2 10^3/uL (0.2-0.9) H 02/19/22 04:13 Eos # (Auto) 0.1 10^3/uL (0.0-0.8) 02/19/22 04:13 Baso # (Auto) 0.0 10^3/uL (0.0-0.1) 02/19/22 04:13 Nucleated RBC % (auto) 0 % 02/19/22 04:13 Nucleated RBCs # 0.0 /100WBC 02/19/22 04:13 Sodium 138 mmol/L (136-145) 02/19/22 04:13 Potassium 4.3 mmol/L (3.5-5.1) 02/19/22 04:13 Chloride 103 mmol/L (98-107) 02/19/22 04:13 Carbon Dioxide 25 mmol/L (22-29) 02/19/22 04:13 Anion Gap 14.3 (5-19) 02/19/22 04:13 BUN 13 mg/dL (8-23) 02/19/22 04:13 Creatinine 0.5 mg/dL (0.5-0.9) 02/19/22 04:13 GFR Calculation Not Reportable 02/19/22 04:13 Glucose 110 mg/dL (65-115) 02/19/22 04:13 Calculated Osmolality 287 mOsm/kg (285-295) 02/19/22 04:13 Calcium 8.6 mg/dL (8.5-10.5) 02/19/22 04:13 Total Bilirubin 0.2 mg/dL (0.15-1.2) 02/04/22 13:25 AST 23 U/L (0-32) 02/04/22 13:25 ALT 37 U/L (0-33) H 02/04/22 13:25 Alkaline Phosphatase 62 U/L (35-105) 02/04/22 13:25 Total Protein 7.5 g/dL (6.6-8.7) 02/04/22 13:25 Albumin 4.5 g/dL (3.5-5.2) 02/04/22 13:25 Globulin 3.0 g/dL (1.3-4.6) 02/04/22 13:25 Urine Color Yellow (Yellow) 02/04/22 13:25 Urine Appearance Clear (CLEAR) 02/04/22 13:25 Urine pH 6.5 (5-7) 02/04/22 13:25 Ur Specific [place] 1.025 (1.005-1.030) 02/04/22 13:25 Urine Protein Neg (Negative) 02/04/22 13:25 Urine Glucose (UA) Norm (Normal) 02/04/22 13:25 Urine Ketones Negative (Negative) 02/04/22 13:25 Urine Blood 2+ (Negative) H 02/04/22 13:25 Urine Nitrate Positive (Negative) H 02/04/22 13:25 Urine Bilirubin Neg (Negative) 02/04/22 13:25 Urine Urobilinogen Norm mg/dL (Negative) 02/04/22 13:25 Ur Leukocyte Esterase 1+ (Negative) H 02/04/22 13:25 Urine RBC 0-4 /hpf (0-2) H 02/04/22 13:25 Urine WBC 0-4 /hpf (0-5) H 02/04/22 13:25 Ur Squamous Epith Cells 10-15 /hpf (0-5) H 02/04/22 13:25 Amorphous Sediment Not Reportable 02/04/22 13:25 Urine Bacteria Trace /hpf (NONE) 02/04/22 13:25 Vitals Last Vital Signs Temp 97.8 F 02/19/22 10:00 Pulse 59 L 02/19/22 10:00 Resp 18 02/19/22 11:03 BP 110/62 02/19/22 10:00 Pulse Ox 96 02/19/22 10:00 O2 Del Method 02/19/22 10:00 O2 Flow Rate 2 02/18/22 22:00 Discharge Plan Discharge Patient Disposition: Home Condition: Stable Prescriptions: New celecoxib 200 mg Capsule 200 mg PO DAILY 30 Days Qty: 30 0RF acetaminophen 500 mg Tablet 1,000 mg PO Q8H 15 Days Qty: 90 0RF aspirin 325 mg Tablet,Delayed Release (Dr/Ec) 325 mg PO DAILY 30 Days Qty: 30 0RF oxycodone 5 mg Tablet 5 mg PO Q4H PRN (Reason: Moderate Pain) 7 Days Qty: 30 0RF Continued anastrozole 1 mg tablet 1 mg PO QDAY Qty: 90 3RF levothyroxine 50 mcg tablet 50 mcg PO DAILY 90 Days Qty: 90 1RF multivitamin Tablet 1 tab PO DAILY Discharge Orders: Discharge Order (Routine); Ordered 02/19/22 Ordered By: Ewelina Moon Other Ambulatory Orders: Physical Therapy Eval and Treat Outpatient (Order) Timeframe: 3 Weeks Facility: [facility] - Location: Physical Therapy Ordered By: Ewelina Moon Referrals: Ewelina Moon MD [Physician] - 03/03/22 3:30 pm (Your first visit will be with Brian nurse practitioner. You will then come and see me the next visit with x- ray.) Discharge Diet: Advance as tolerated and Usual diet Discharge Activity: Increase activity as tolerated, Limit activity as instructed and Use walker/crutches as instructed Patient Instructions: Oxycodone, Rapid Release (By mouth) (ETH-Oxydose, Oxy IR,..., Tramadol (By mouth), Joint Replacement Surgery (DC), Knee Replacement (D C), Opioid Safety, Post Anesthesia Care, Post Operative Pain Activity Restrictions/Additional Instructions: Ice and elevation to left lower extremity. You may remove your dressing in 1 to 2 days, leave clear plastic dressing in place. Discharge Attestations Time Spent in Discharge Care*: greater than 30 min Specific Discharge Activities: educating patient, educating and/or supporting family/caregiver, documenting/other paperwork and evaluating patient/reviewing data Quality Metrics Clinical Quality Measures [ No reported AMI, CVA or VTE this stay] Coding Level of Care Code Acute Chg FW DC note Diagnoses Status post total left knee replacement not using cement Z96.652 Osteoarthritis of left knee M17.12 Osteoarthritis type: primary
[2022-02-19 16:04] VITALS: BP 130/77; PULSE 86; RESP 15; TEMP 36.4; O2SAT 96
== END 2022-02-19 15:45 | disposition home or self-care (01) ==
PROVIDERS: Admitting Provider Specialist; PCP Family Medicine; Visit Provider Specialist
PROC: (CPT 27447; principal; 2022-02-18 07:00)
DX: M17.12 Unilateral primary osteoarthritis, left knee (principal); M25.762 Osteophyte, left knee; E03.9 Hypothyroidism, unspecified; Z88.0 Allergy status to penicillin; Z96.651 Presence of right artificial knee joint
CPT/HCPCS: 27447; 36415; 51702; 73562; 80048; 80053; 81001; 85025; 87086; 97110; 97116; 97161; 97165; C1776; C9290; G0378; J1100; J1170; J2370; J2405; J2704; J2795; J3010; J3370; J3490; J7030; J7050; J8999

== ENCOUNTER 2022-02-26 13:05 | Outpatient (RCR) | payer MEDICARE, OTHER, SELFPAY | END 2022-03-07 23:59 | disposition home or self-care (01) | LOC: SPT 13:05 | PROVIDERS: PCP Family Medicine; Visit Provider Specialist | DX: M17.12 Unilateral primary osteoarthritis, left knee (principal) | CPT/HCPCS: 97161 ==

== ENCOUNTER → 2022-03-03 15:28 | Outpatient (BNVA) | payer MEDICARE, OTHER, SELFPAY | PROVIDERS: PCP Family Medicine; Visit Provider Nurse Practitioner Family | DX: R60.0 Localized edema (principal); L23.1 Allergic contact dermatitis due to adhesives; Z96.652 Presence of left artificial knee joint | CPT/HCPCS: 73560; 73565; 99214 ==

== ENCOUNTER 2022-03-08 06:00 | Outpatient (RCR) | payer MEDICARE, OTHER, SELFPAY | END 2022-04-07 23:59 | disposition home or self-care (01) | LOC: SPT 06:00 | PROVIDERS: PCP Family Medicine; Visit Provider Specialist | DX: M17.12 Unilateral primary osteoarthritis, left knee (principal) | CPT/HCPCS: 97110 ==

== ENCOUNTER → 2022-03-10 13:43 | Outpatient (BNVA) | payer MEDICARE, OTHER, SELFPAY | PROVIDERS: PCP Family Medicine; Visit Provider Nurse Practitioner Family | DX: Z47.1 Aftercare following joint replacement surgery (principal); Z96.652 Presence of left artificial knee joint | CPT/HCPCS: 99024 ==

== ENCOUNTER 2022-04-08 06:00 | Outpatient (RCR) | payer MEDICARE, OTHER, SELFPAY | END 2022-05-07 23:59 | disposition home or self-care (01) | LOC: SPT 06:00 | PROVIDERS: PCP Family Medicine; Visit Provider Specialist | DX: M17.12 Unilateral primary osteoarthritis, left knee (principal) | CPT/HCPCS: 97110; 97112 ==

== ENCOUNTER → 2022-04-09 13:34 | Outpatient (BNVA) | payer MEDICARE, OTHER, SELFPAY | PROVIDERS: PCP Family Medicine; Visit Provider Nurse Practitioner Family | DX: Z96.652 Presence of left artificial knee joint (principal) | CPT/HCPCS: 73560; 73565; 99024 ==

== ENCOUNTER → 2022-05-13 11:34 | Outpatient (BNVA) | payer MEDICARE, OTHER, SELFPAY | PROVIDERS: PCP Family Medicine; Visit Provider Family Medicine | DX: E03.9 Hypothyroidism, unspecified (principal) | CPT/HCPCS: 84439; 84443 ==

== ENCOUNTER 2022-06-30 09:01 | Outpatient (CLI) | payer MEDICARE, OTHER, SELFPAY ==
--- NOTE | 2022-06-30 09:09 | MM_ITS ---
WS: [id number] DIAGNOSTIC RIGHT DIGITAL TOMOSYNTHESIS MAMMOGRAPHY WITH CAD. HISTORY: History of breast cancer. COMPARISON: 05/01/2020 and 05/28/2021 Technique: CC, MLO and ML views. Breast composition: There are scattered areas of fibroglandular density. Small scattered calcificati ons. MM/[place] [id number] IMPRESSION: BI-RADS: 2-Benign FOLLOW UP: 1 Year Follow-up
== END 2022-06-30 09:02 | disposition home or self-care (01) ==
LOC: RAD 09:01
PROVIDERS: PCP Family Medicine; Referring Provider Internal Medicine Hematology & Oncology; Visit Provider Family Medicine
DX: Z85.3 Personal history of malignant neoplasm of breast (principal)
CPT/HCPCS: 77061; G0279

== ENCOUNTER → 2022-07-10 13:45 | Outpatient (BNVA) | payer MEDICARE, OTHER, SELFPAY | PROVIDERS: PCP Family Medicine; Visit Provider Nurse Practitioner Family | DX: Z96.652 Presence of left artificial knee joint (principal) | CPT/HCPCS: 73560; 73565; 99213 ==

== ENCOUNTER 2022-07-16 11:54 | Oncology outpatient (recurring) (ONCR) | payer MEDICARE, OTHER, SELFPAY ==
[2022-07-16 12:33] LABS: Basophils # 0.1 10^3/uL (0.0-0.1); Eosinophils # 0.3 10^3/uL (0.0-0.8); Hematocrit 41.4 % (37.0-47.0); Hemoglobin 13.4 g/dL (11.5-15.3); Lymphocytes # 2.3 10^3/uL (0.8-4.8); Lymphocytes % 26.3 %; Mean Corpuscular HGB Conc 32.4 g/dL (30.0-36.0); Mean Corpuscular Hemoglobin 30.9 pg (28.0-34.0); Mean Corpuscular Volume 95.6 fl (81-99); Mean Platelet Volume 10.9 fL (7.4-10.4); Monocytes # 0.6 10^3/uL (0.2-0.9); Monocytes % 7.2 %; Neutrophils # 5.44 10^3/uL (1.8-7.7); Neutrophils % 62.3 %; Nucleated Red Blood Cells % 0 %; Platelet Count 299 10^3/cmm (130-400); Red Blood Count 4.33 10^6/uL (4.1-5.3); Red Cell Distribution Width 12.9 % (12.1-15.1); White Blood Count 8.7 10^3/uL (4.0-10.0)
[2022-07-16 13:05] LABS: Alanine Aminotransferase 29 U/L (0-33); Albumin Level 4.5 g/dL (3.5-5.2); Alkaline Phosphatase 61 U/L (35-105); Anion Gap 13.1 (5-19); Aspartate Amino Transferase 19 U/L (0-32); Blood Urea Nitrogen 28 mg/dL (8-23); Calcium 9.7 mg/dL (8.5-10.5); Carbon Dioxide 30 mmol/L (22-29); Chloride 100 mmol/L (98-107); Globulin 2.9 g/dL (1.3-4.6); Glucose 94 mg/dL (65-115); Osmolality Calculated 293 mOsm/kg (285-295); Potassium 4.1 mmol/L (3.5-5.1); Sodium 139 mmol/L (136-145); Thyroid Stimulating Hormone 11.64 uIU/mL (0.27-4.20); Total Bilirubin 0.3 mg/dL (0.15-1.2); Total Protein 7.4 g/dL (6.6-8.7)
[2022-07-16 14:27] LABS: Free T4 Free Thyroxine 1.01 ng/dL (0.82-1.77)
== END 2022-08-05 23:59 | disposition home or self-care (01) ==
PROVIDERS: PCP Family Medicine; Visit Provider Internal Medicine Hematology & Oncology
DX: C50.812 Malignant neoplasm of overlapping sites of left female breast (principal); Z17.0 Estrogen receptor positive status [ER+]; Z90.12 Acquired absence of left breast and nipple; Z79.818 Long term (current) use of other agents affecting estrogen receptors and estrogen levels; E03.9 Hypothyroidism, unspecified; Z78.0 Asymptomatic menopausal state
CPT/HCPCS: 80053; 84439; 84443; 85025; 99214

== ENCOUNTER 2022-07-21 13:37 | Outpatient (CLI) | payer MEDICARE, OTHER, SELFPAY ==
--- NOTE | 2022-07-21 14:30 | XR_ITS ---
WS: [id number] DEXA (DUAL ENERGY X-RAY ABSORPTIOMETRY) Bone mineral density was performed using a [place] machine. HISTORY: Follow up COMPARISON: None available. Lumbar spine BMD (L1-L4): 1.276 g/cm2 T score: 0.8 Z score: 1.4 Total hip BMD: Left: 1.016 g/cm2. T score: 0.1 Z score: 1.0 Right: 1.110 g/cm2. T score: 0.8 Z score: 1.7 10 year probability of a major osteoporotic fracture is 7.8%. XR/XR DEXA axial skeleton* 84130 IMPRESSION: NORMAL BONE MINERAL DENSITY based upon the WHO classification for females.
== END 2022-07-21 13:38 | disposition home or self-care (01) ==
PROVIDERS: PCP Family Medicine; Visit Provider Internal Medicine Hematology & Oncology
DX: Z79.899 Other long term (current) drug therapy (principal); Z79.811 Long term (current) use of aromatase inhibitors
CPT/HCPCS: 77080

== ENCOUNTER → 2022-08-26 13:41 | Outpatient (BNVA) | payer MEDICARE, OTHER, SELFPAY | PROVIDERS: PCP Family Medicine; Visit Provider Family Medicine | DX: E03.9 Hypothyroidism, unspecified (principal) | CPT/HCPCS: 84439; 84443 ==

== ENCOUNTER → 2022-11-11 09:37 | Outpatient (BNVA) | payer MEDICARE, OTHER, SELFPAY | PROVIDERS: PCP Family Medicine; Visit Provider Family Medicine | DX: E03.9 Hypothyroidism, unspecified (principal); R60.0 Localized edema | CPT/HCPCS: 84439; 84443 ==

== ENCOUNTER 2023-01-15 12:00 | Oncology outpatient (recurring) (ONCR) | payer MEDICARE, OTHER, SELFPAY ==
[2023-01-15 12:41] VITALS: BP 133/85; PULSE 78; RESP 16; TEMP 36.4; O2SAT 98
[2023-01-15 13:12] LABS: Basophils % 0.4 %; Eosinophils # 0.4 10^3/uL (0.0-0.8); Eosinophils % 3.3 %; Hematocrit 39.6 % (37.0-47.0); Hemoglobin 13.2 g/dL (11.5-15.3); Lymphocytes # 2.3 10^3/uL (0.8-4.8); Lymphocytes % 21.3 %; Mean Corpuscular HGB Conc 33.3 g/dL (30.0-36.0); Mean Corpuscular Volume 95.9 fl (81-99); Mean Platelet Volume 11.7 fL (7.4-10.4); Monocytes # 0.7 10^3/uL (0.2-0.9); Monocytes % 6.4 %; Neutrophils # 7.33 10^3/uL (1.8-7.7); Neutrophils % 68.2 %; Nucleated Red Blood Cells % 0 %; Platelet Count 249 10^3/cmm (130-400); Red Blood Count 4.13 10^6/uL (4.1-5.3); Red Cell Distribution Width 13.1 % (12.1-15.1); White Blood Count 10.8 10^3/uL (4.0-10.0)
[2023-01-15 13:24] LABS: Alanine Aminotransferase 20 U/L (0-33); Albumin Level 4.2 g/dL (3.5-5.2); Alkaline Phosphatase 53 U/L (35-105); Anion Gap 12.8 (5-19); Aspartate Amino Transferase 16 U/L (0-32); Blood Urea Nitrogen 27 mg/dL (8-23); Calcium 8.9 mg/dL (8.5-10.5); Carbon Dioxide 26 mmol/L (22-29); Chloride 105 mmol/L (98-107); Globulin 2.8 g/dL (1.3-4.6); Glucose 98 mg/dL (65-115); Osmolality Calculated 295 mOsm/kg (285-295); Potassium 3.8 mmol/L (3.5-5.1); Sodium 140 mmol/L (136-145); Total Bilirubin 0.4 mg/dL (0.15-1.2)
== END 2023-02-05 23:59 | disposition home or self-care (01) ==
PROVIDERS: Nurse Practitioner Family; PCP Family Medicine; Visit Provider Internal Medicine Medical Oncology
DX: C50.812 Malignant neoplasm of overlapping sites of left female breast (principal); Z17.0 Estrogen receptor positive status [ER+]; Z90.12 Acquired absence of left breast and nipple; Z79.811 Long term (current) use of aromatase inhibitors; D72.829 Elevated white blood cell count, unspecified; Z78.0 Asymptomatic menopausal state
CPT/HCPCS: 36415; 80053; 85025; 99214

== ENCOUNTER → 2023-05-26 13:04 | Outpatient (BNVA) | payer MEDICARE, OTHER, SELFPAY | PROVIDERS: PCP Family Medicine; Visit Provider Family Medicine | DX: E03.9 Hypothyroidism, unspecified (principal) | CPT/HCPCS: 84439; 84443 ==

== ENCOUNTER 2023-07-14 14:24 | Outpatient (CLI) | payer MEDICARE, OTHER, SELFPAY ==
--- NOTE | 2023-07-14 14:26 | MM_ITS ---
WS: [id number] DIAGNOSTIC RIGHT DIGITAL TOMOSYNTHESIS MAMMOGRAPHY WITH CAD. HISTORY: Annual COMPARISON: 06/30/2022, 05/28/2021 Technique: CC, MLO and ML views. Breast composition: The breasts are almost entirely fatty. Pectoralis muscle is not included. Benign calcifications scattered throughout the breast. No mass. IMPRESSION: MM/[place] [id number] BI-RADS: 1-Negative FOLLOW UP: 1 Year Follow-up
== END 2023-07-14 14:25 | disposition home or self-care (01) ==
LOC: RAD 14:24
PROVIDERS: PCP Family Medicine; Visit Provider Internal Medicine Medical Oncology
DX: Z85.3 Personal history of malignant neoplasm of breast (principal)
CPT/HCPCS: 77061; G0279

== ENCOUNTER 2023-08-03 11:49 | Oncology outpatient (recurring) (ONCR) | payer MEDICARE, OTHER, SELFPAY ==
[2023-08-03 12:56] LABS: Basophils # 0.1 10^3/uL (0.0-0.1); Basophils % 0.9 %; Eosinophils # 0.1 10^3/uL (0.0-0.8); Eosinophils % 1.7 %; Hematocrit 40.6 % (36-47); Lymphocytes # 1.9 10^3/uL (0.8-4.8); Lymphocytes % 25.2 %; Mean Corpuscular HGB Conc 33.7 g/dL (30-55); Mean Corpuscular Hemoglobin 31.2 pg (27-33); Mean Corpuscular Volume 92.5 fl (85-98); Mean Platelet Volume 10.7 fL (7.4-10.4); Monocytes # 0.6 10^3/uL (0.2-0.9); Neutrophils # 4.89 10^3/uL (1.8-7.7); Neutrophils % 63.8 %; Nucleated Red Blood Cells % 0 %; Platelet Count 272 10^3/cmm (157-399); Red Blood Count 4.39 10^6/uL (3.85-5.65); Red Cell Distribution Width 12.2 % (12.1-15.1); White Blood Count 7.66 10^3/uL (3.29-11.43)
[2023-08-03 13:07] LABS: Alanine Aminotransferase 43 U/L (0-33); Alkaline Phosphatase 58 U/L (35-105); Anion Gap 12.4 (5-19); Aspartate Amino Transferase 29 U/L (0-32); Blood Urea Nitrogen 14 mg/dL (8-23); Calcium 8.8 mg/dL (8.5-10.5); Carbon Dioxide 26 mmol/L (22-29); Chloride 102 mmol/L (98-107); Globulin 3.4 g/dL (1.3-4.6); Glucose 115 mg/dL (65-115); Osmolality Calculated 283 mOsm/kg (285-295); Potassium 4.4 mmol/L (3.5-5.1); Sodium 136 mmol/L (136-145); Total Bilirubin 0.4 mg/dL (0.15-1.2); Total Protein 7.4 g/dL (6.6-8.7)
== END 2023-08-06 23:59 | disposition home or self-care (01) ==
PROVIDERS: Nurse Practitioner Family; PCP Family Medicine; Visit Provider Internal Medicine Medical Oncology
DX: C50.812 Malignant neoplasm of overlapping sites of left female breast (principal); Z17.0 Estrogen receptor positive status [ER+]; Z90.12 Acquired absence of left breast and nipple; Z79.899 Other long term (current) drug therapy
CPT/HCPCS: 36415; 80053; 85025; 99214

== ENCOUNTER → 2023-11-23 13:25 | Outpatient (BNVA) | payer MEDICARE, OTHER, SELFPAY | PROVIDERS: PCP Family Medicine; Visit Provider Family Medicine | DX: E03.9 Hypothyroidism, unspecified (principal) | CPT/HCPCS: 84439; 84443 ==

== ENCOUNTER → 2024-08-04 09:47 | Outpatient (BNVA) | payer MEDICARE, OTHER, SELFPAY | PROVIDERS: PCP Family Medicine; Visit Provider Family Medicine | DX: E03.9 Hypothyroidism, unspecified (principal); C50.912 Malignant neoplasm of unspecified site of left female breast | CPT/HCPCS: 84439; 84443; 85025 ==

== ENCOUNTER → 2024-08-11 09:13 | Outpatient (BNVA) | payer MEDICARE, OTHER, SELFPAY | PROVIDERS: PCP Family Medicine; Visit Provider Podiatrist Foot & Ankle Surgery | DX: L60.0 Ingrowing nail (principal) | CPT/HCPCS: 99203 ==

== ENCOUNTER → 2024-09-08 11:10 | Outpatient (BNVA) | payer MEDICARE, OTHER, SELFPAY | PROVIDERS: PCP Family Medicine; Visit Provider Podiatrist Foot & Ankle Surgery | DX: L60.0 Ingrowing nail (principal) | CPT/HCPCS: 11750; A6219; J9999 ==

== ENCOUNTER → 2024-09-22 13:22 | Outpatient (BNVA) | payer MEDICARE, OTHER, SELFPAY | PROVIDERS: PCP Family Medicine; Visit Provider Podiatrist Foot & Ankle Surgery | DX: L60.0 Ingrowing nail (principal) | CPT/HCPCS: 99213 ==

== ENCOUNTER → 2024-11-23 11:58 | Outpatient (BNVA) | payer MEDICARE, OTHER, SELFPAY | PROVIDERS: PCP Family Medicine; Visit Provider Family Medicine | DX: E03.9 Hypothyroidism, unspecified (principal) | CPT/HCPCS: 80053; 80061; 84439; 84443; 84480; 85025 ==